=== PATIENT | male | born 1985 | race Caucasian/White ===

== ENCOUNTER 2016-12-02 16:09 | Emergency (ER) | payer SELFPAY ==
[~2016-12-02] VITALS: Ht 182.9 cm; Wt 87.2 kg
[~2016-12-02 16:09] MED LIST: ALBU17I INH; ALBU6.7H INH; ALPR1 PO; DICY10 PO; IBUP600T26 PO; ULTR50TA PO
[2016-12-02 16:23] VITALS: BP 136/98; PULSE 84; RESP 24; TEMP 97.7; O2SAT 100
[2016-12-02 16:55] VITALS: RESP 16; O2SAT 99
[2016-12-02] MEDS: RESP: ALBUTEROL 2.5 MG/IPRATROPIUM 0.5 MG NEB (SCH) INH ×2 (16:55→16:57)
[2016-12-02] MEDS ORDERED: ALBUTEROL SULFATE 90 MCG/ACT HFA 8 GM INHALER INH ONE (17:00)
[2016-12-02] MEDS ORDERED: SODIUM CHLOR 0.9% 1000 ML INJ 1,000 ML IV ONE ×2 (17:00)
[2016-12-02] MEDS ORDERED: DEXAMETHASONE SOD PHOS 4 MG/ML VIAL IM ONE (17:00)
[2016-12-02] MEDS ORDERED: SODIUM CHLORIDE 0.9% FLUSH 10 ML FLUSH IVF PRN (17:00)
[2016-12-02 17:15] LABS: AUTOMATED NEUTROPHIL # 6.3 TH/MM3 (1.8-7.7); BASOPHIL # 0.1 TH/MM3 (0-0.2); BASOPHIL % 0.6 % (0.0-2.0); EOSINOPHIL # 0.6 TH/MM3 (0-0.4); EOSINOPHIL % 5.9 % (0.0-4.0); HEMATOCRIT 42.6 % (39.0-51.0); HEMO FLAGS DIFF FINAL; LYMPH % 26.2 % (9.0-44.0); LYMPHOCYTE # 2.7 TH/MM3 (1.0-4.8); MEAN CELL VOLUME 90.6 FL (80.0-100.0); MEAN CORPUSCULAR HEMOGLOBIN 31.6 PG (27.0-34.0); MEAN CORPUSCULAR HGB CONC 34.9 % (32.0-36.0); NEUT % 60.3 % (16.0-70.0); PLATELET COUNT 193 TH/MM3 (150-450); RED CELL DISTRIBUTION WIDTH 11.8 % (11.6-17.2); WHITE BLOOD COUNT 10.4 TH/MM3 (4.0-11.0)
[2016-12-02 17:23] LABS: CHLORIDE 108 MEQ/L (98-107); POTASSIUM 3.6 MEQ/L (3.5-5.1); SODIUM (NA) 141 MEQ/L (136-145)
[2016-12-02 17:27] LABS: ANION GAP 11 MEQ/L (5-15); BICARBONATE 21.6 MEQ/L (21.0-32.0); BLOOD UREA NITROGEN 11 MG/DL (7-18)
[2016-12-02 17:29] LABS: ALT (GPT) 26 U/L (12-78); AST (GOT) 20 U/L (15-37)
[2016-12-02 17:30] LABS: GLOMERULAR FILTRATION RATE 105 ML/MIN (>89)
[2016-12-02 17:31] LABS: TOTAL BILIRUBIN ADULT 0.5 MG/DL (0.2-1.0)
[2016-12-02 17:32] LABS: ALKALINE PHOSPHATASE 49 U/L (45-117)
--- NOTE | 2016-12-02 17:44 | PD ---
HPI Chief Complaint: Respiratory Symptoms Time Seen by Provider: 16:34 Travel History International Travel<30 days: No Contact w/Intl Traveler<30days: No Traveled to known affect area: No History of Present Illness HPI 31-year-old male history of asthma arrives with shortness of breath and wheezing. He cannot take a full breath. He has tightness about the chest consistent with asthma. He ran out of his albuterol inhaler and nebulizer supplies about 2 weeks prior. He has had no cough or fever. He also notes vomiting the the last few mornings. 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 He smokes tobacco. He denies loss of consciousness chest pain and shortness of breath. PFSH Past Medical History Asthma: Yes Anxiety: Yes Diminished Hearing: No Gastrointestinal Disorders: Yes (ULCERATIVE COLITIS) Kidney Stones: Yes Respiratory: Yes (ASTHMA) Seizures: Yes Tetanus Vaccination: > 5 Years Influenza Vaccination: No Past Surgical History Genitourinary Surgery: Yes (LITHOTRIPSY ) Other Surgery: Yes (COLONOSCOPY, RIGHT ORBITAL FRACTURE) Social History Alcohol Use: Yes (hx of ETOH abuse states at present time only 1 drink a day or less) Tobacco Use: Yes (1/2 PPD) Substance Use: Yes (MARIJUANA) Allergies-Medications (Allergen,Severity, Reaction): Coded Allergies: Bee Sting (Verified Allergy, Severe, Anaphylaxis, 12/02/16) Reported Meds & Prescriptions Reported Meds & Active Scripts Active Zofran Odt (Ondansetron Odt) 4 Mg Tab 4 Mg SL Q8HR PRN Ventolin Hfa 18 GM Inh (Albuterol Sulfate) 90 Mcg/Act Aer 2 Puff INH Q4H PRN Review of Systems Except as stated in HPI: all other systems reviewed are Neg General / Constitutional: No: Fever Respiratory: Positive: Shortness of Breath, Wheezing Physical Exam Narrative GENERAL: 31 yo M, WNWD, mild conversational dyspnea SKIN: Warm and dry. HEAD: Atraumatic. Normocephalic. EYES: Pupils equal and round. No scleral icterus. No injection or drainage. ENT: No nasal bleeding or discharge. Mucous membranes pink and moist. NECK: Trachea midline. No JVD. CARDIOVASCULAR: Regular. Tachycardia. RESPIRATORY: Wheezing present bilaterally. Mild tachypnea. GASTROINTESTINAL: Abdomen soft, non-tender, nondistended. Hepatic and splenic margins not palpable. MUSCULOSKELETAL: Extremities without clubbing, cyanosis, or edema. No obvious deformities. NEUROLOGICAL: Awake and alert. No obvious cranial nerve deficits. Motor grossly within normal limits. Five out of 5 muscle strength in the arms and legs. Normal speech. PSYCHIATRIC: Appropriate mood and affect; insight and judgment normal. Data Data Last Documented VS Vital Signs Date Time Temp Pulse Resp B/P Pulse Ox O2 Delivery O2 Flow Rate FiO2 12/02/16 17:51 80 16 141/82 98 Room Air 12/02/16 16:23 97.7 VS reviewed Orders Complete Blood Count With Diff (12/02/16 16:46) Comprehensive Metabolic Panel (12/02/16 16:46) Iv Access Insert/Monitor (12/02/16 16:46) Ecg Monitoring (12/02/16 16:46) Oximetry (12/02/16 16:46) Oxygen Administration (12/02/16 16:46) Sodium Chloride 0.9% Flush (Ns Flush) (12/02/16 17:00) Albuterol-Ipratropium Neb (Duoneb Neb) (12/02/16 17:00) Dexamethasone Inj (Decadron Inj) (12/02/16 17:00) Lipase (12/02/16 16:46) Sodium Chlor 0.9% 1000 Ml Inj (Ns 1000 M (12/02/16 17:00) Sodium Chlor 0.9% 1000 Ml Inj (Ns 1000 M (12/02/16 17:00) Albuterol Hfa Inh (Proair Hfa Inh) (12/02/16 17:00) Labs Laboratory Tests Test 12/02/16 17:05 White Blood Count 10.4 TH/MM3 Red Blood Count 4.70 MIL/MM3 Hemoglobin 14.9 GM/DL Hematocrit 42.6 % Mean Corpuscular Volume 90.6 FL Mean Corpuscular Hemoglobin 31.6 PG Mean Corpuscular Hemoglobin 34.9 % Concent Red Cell Distribution Width 11.8 % Platelet Count 193 TH/MM3 Mean Platelet Volume 9.7 FL Neutrophils (%) (Auto) 60.3 % Lymphocytes (%) (Auto) 26.2 % Monocytes (%) (Auto) 7.0 % Eosinophils (%) (Auto) 5.9 % Basophils (%) (Auto) 0.6 % Neutrophils # (Auto) 6.3 TH/MM3 Lymphocytes # (Auto) 2.7 TH/MM3 Monocytes # (Auto) 0.7 TH/MM3 Eosinophils # (Auto) 0.6 TH/MM3 Basophils # (Auto) 0.1 TH/MM3 CBC Comment DIFF FINAL Differential Comment Sodium Level 141 MEQ/L Potassium Level 3.6 MEQ/L Chloride Level 108 MEQ/L Carbon Dioxide Level 21.6 MEQ/L Anion Gap 11 MEQ/L Blood Urea Nitrogen 11 MG/DL Creatinine 0.85 MG/DL Estimat Glomerular Filtration 105 ML/MIN Rate Random Glucose 85 MG/DL Calcium Level 9.3 MG/DL Total Bilirubin 0.5 MG/DL Aspartate Amino Transf 20 U/L (AST/SGOT) Alanine Aminotransferase 26 U/L (ALT/SGPT) Alkaline Phosphatase 49 U/L Total Protein 7.1 GM/DL Albumin 3.7 GM/DL Lipase 135 U/L [facility] Medical Decision Making Medical Screen Exam Complete: Yes Emergency Medical Condition: Yes Differential Diagnosis Asthma exacerbation, PNA, pancreatitis, gastritis, hepatitis Narrative Course CBC & BMP Diagram 12/02/16 17:05 LFTs normal Lipase 135 The patient is resting comfortably and feels better, is alert and in no distress. The patients results and examination findings were discussed. The repeat examination is unremarkable and benign. The history, exam, diagnostic testing, and current condition do not suggest any significant pathology to warrant further testing, continued ED treatment, admission, or surgical evaluation at this point. The vital signs have been stable. The patient does not have uncontrollable pain, intractable vomiting, or other significant symptoms. The patient's condition is stable and appropriate for discharge. The patient will pursue further outpatient evaluation with a primary care physician or other designated or consulting physician as indicated in the discharge instructions. The patient expressed understanding and was agreeable with this plan. Diagnosis Primary Impression: Asthma attack Additional Impression: Vomiting Qualified Code: R11.11 - Non-intractable vomiting without nausea, unspecified vomiting type Referrals: Felipe Drummond MD 2 days Additional Instructions: You have a choice when it comes to health care, and we are glad that you chose [facility]. Hopefully, we have met your expectations on today's visit. You are welcome to return to [facility] at any time, as we are committed to meeting the health care needs of our community. Med/Other Pt SpecificInfo: Prescription(s) given Scripts Ondansetron Odt (Zofran Odt)4 Mg Tab4 Mg SL Q8HR PRN (Nausea/Vomiting) #10 TAB Ref 0 Prov:Vinay Avery MD 12/02/16 Albuterol 18 GM Inh (Ventolin Hfa 18 GM Inh)90 Mcg/Act Aer2 Puff INH Q4H PRN ( WHEEZING) #1 INHALER Ref 0 Prov:Vinay Avery MD 12/02/16 Disposition: 01 DISCHARGE HOME Condition: Stable Vinay Avery MD December 02, 2016 17:44 Vinay Avery MD December 02, 2016 17:44 Vinay Avery MD December 02, 2016 17:44
[2016-12-02 17:51] VITALS: BP 141/82; PULSE 80; RESP 16; O2SAT 98
[2016-12-02] MEDS ORDERED: VENTAER INH (17:54)
[2016-12-02] MEDS ORDERED: ZOFR4TAB3 SL (17:55)
== END 2016-12-02 18:12 | disposition home or self-care (01) ==
LOC: PHEFT 16:09
DX: J45.909 Unspecified asthma, uncomplicated (principal); R11.10 Vomiting, unspecified; F17.200 Nicotine dependence, unspecified, uncomplicated; F41.9 Anxiety disorder, unspecified
CPT/HCPCS: 80053; 83690; 85025; 94640; 94664; 96360; 96372; 99284; J1100; J7030

== ENCOUNTER 2017-06-02 17:16 | Emergency (ER) | payer SELFPAY ==
[~2017-06-02] VITALS: Ht 182.9 cm; Wt 92.4 kg
[~2017-06-02 17:16] MED LIST changes: -ALBU17I INH; -ALBU6.7H INH; -ALPR1 PO; -DICY10 PO; -IBUP600T26 PO; -ULTR50TA PO; +VENTAER INH; +ZOFR4TAB3 SL
[2017-06-02 17:20] VITALS: BP 134/70; PULSE 92; RESP 20; TEMP 98.2; O2SAT 100
[2017-06-02] MEDS ORDERED: methylPREDNISolone SOD SUCC 125 MG/2 ML VIAL IV PUSH ONE (17:30)
[2017-06-02] MEDS ORDERED: MAGNESIUM SULFATE 1 GM PREMIX 100 ML IV ONE (17:30)
[2017-06-02] MEDS ORDERED: SODIUM CHLORIDE 0.9% FLUSH 10 ML FLUSH IVF PRN (17:30)
[2017-06-02] MEDS ORDERED: SODIUM CHLOR 0.9% 1000 ML INJ 1,000 ML IV ONE (17:30)
--- NOTE | 2017-06-02 17:32 | PD ---
HPI Chief Complaint: Respiratory Symptoms Time Seen by Provider: 17:23 Travel History International Travel<30 days: No Contact w/Intl Traveler<30days: No Traveled to known affect area: No History of Present Illness HPI C/O 1 WEEK PROGRESSIVELY WORSENING DRY COUGH, WHEEZING, SOB AND NOW PALPITATIONS ALSO...C/O SHARP CP, LEFT SIDED, NONRAD, 01/11, WORSENED BY BREATHING...NO ALLEVIATING OR AGGRAVATING FACTORS....NO ASSOC FEVER/SHARPE/BACK PAIN /ABD PAIN/N/V/D/ PCP:NONE ALL:[facility] PMHX: ASTHMA, ULCERATIVE COLITIS, KIDNEY STONES PSHX DENIES PFSH Past Medical History Asthma: Yes Anxiety: Yes Diminished Hearing: No Gastrointestinal Disorders: Yes (ULCERATIVE COLITIS) Kidney Stones: Yes Respiratory: Yes Seizures: Yes Past Surgical History Genitourinary Surgery: Yes (LITHOTRIPSY ) Other Surgery: Yes (COLONOSCOPY, RIGHT ORBITAL FRACTURE) Social History Alcohol Use: Yes (hx of ETOH abuse states at present time only 1 drink a day or less) Tobacco Use: Yes (1/2 PPD) Substance Use: Yes (MARIJUANA) Allergies-Medications (Allergen,Severity, Reaction): Coded Allergies: bee venom protein (honey bee) (Unverified Allergy, Severe, Anaphylaxis, ) Reported Meds & Prescriptions Reported Meds & Active Scripts Active Ventolin Hfa 18 GM Inh (Albuterol Sulfate) 90 Mcg/Act Aer 2 Puff INH Q4H PRN Review of Systems Except as stated in HPI: all other systems reviewed are Neg General / Constitutional: No: Fever Eyes: No: Visual changes HENT: No: Headaches Cardiovascular: Positive: Chest Pain or Discomfort Respiratory: Positive: Cough, Shortness of Breath, Wheezing Gastrointestinal: No: Abdominal Pain Genitourinary: No: Dysuria Musculoskeletal: No: Pain Skin: No Rash Neurologic: No: Weakness Psychiatric: No: Depression Endocrine: No: Polydipsia Hematologic/Lymphatic: No: Easy Bruising Physical Exam Narrative GENERAL: SKIN: Warm and dry. HEAD: Atraumatic. Normocephalic. EYES: Pupils equal and round. No scleral icterus. No injection or drainage. ENT: No nasal bleeding or discharge. Mucous membranes pink and moist. NECK: Trachea midline. No JVD. CARDIOVASCULAR: Regular rate and rhythm. RESPIRATORY: No accessory muscle use. WHEEZING, DECREASED TIDAL VOLUME, NO RETRACTIONS GASTROINTESTINAL: Abdomen soft, non-tEnder, nondistended. MUSCULOSKELETAL: Extremities without clubbing, cyanosis, or edema. No obvious deformities. NEUROLOGICAL: Awake and alert. No obvious cranial nerve deficits. Motor grossly within normal limits. Five out of 5 muscle strength in the arms and legs. Normal speech. PSYCHIATRIC: Appropriate mood and affect; insight and judgment normal. Data Data Last Documented VS Vital Signs Date Time Temp Pulse Resp B/P (MAP) Pulse Ox O2 Delivery O2 Flow Rate FiO2 06/02/17 17:44 100 Room Air 06/02/17 17:25 92 06/02/17 17:20 98.2 20 134/70 (91) Orders Orders Complete Blood Count With Diff (06/02/17 17:24) Comprehensive Metabolic Panel (06/02/17:) B-Type Natriuretic Peptide (06/02/17 17:24) Act Partial Throm Time (Ptt) (06/02/17:24) Prothrombin Time / Inr (Pt) (06/02/17:24) Troponin I (06/02/17:24) Influenzae A/B Antigen (06/02/17 17:24) Iv Access Insert/Monitor (06/02/17 17:24) Electrocardiogram (06/02/17:24) Ecg Monitoring (06/02/17:24) Oximetry (06/02/17:24) Oxygen Administration (06/02/17 17:24) Chest, Single Ap (06/02/17 17:24) Ct Pulmonary Angiogram (06/02/17 17:24) Sodium Chloride 0.9% Flush (Ns Flush) (06/02/17 17:30) Methylprednisolone So Succ Inj (Solumedr (06/02/17 17:30) Albuterol Neb (Albuterol Neb) (06/02/17 17:30) Magnesium Sulfate 1 Gm Premix (Magnesium (06/02/17 17:30) Sodium Chlor 0.9% 1000 Ml Inj (Ns 1000 M (06/02/17 17:30) Labs Laboratory Tests Test 06/02/17 17:30 White Blood Count 9.2 TH/MM3 Red Blood Count 5.21 MIL/MM3 Hemoglobin 15.6 GM/DL Hematocrit 47.0 % Mean Corpuscular Volume 90.2 FL Mean Corpuscular Hemoglobin 29.9 PG Mean Corpuscular Hemoglobin Concent 33.2 % Red Cell Distribution Width 11.6 % Platelet Count 208 TH/MM3 Mean Platelet Volume 9.9 FL Neutrophils (%) (Auto) 53.8 % Lymphocytes (%) (Auto) 30.9 % Monocytes (%) (Auto) 8.1 % Eosinophils (%) (Auto) 6.6 % Basophils (%) (Auto) 0.6 % Neutrophils # (Auto) 5.0 TH/MM3 Lymphocytes # (Auto) 2.8 TH/MM3 Monocytes # (Auto) 0.7 TH/MM3 Eosinophils # (Auto) 0.6 TH/MM3 Basophils # (Auto) 0.1 TH/MM3 CBC Comment DIFF FINAL Differential Comment Prothrombin Time 10.5 SEC Prothromb Time International Ratio 1.0 RATIO Activated Partial Thromboplast Time 28.2 SEC Blood Urea Nitrogen 17 MG/DL Creatinine 1.10 MG/DL Random Glucose 90 MG/DL Total Protein 7.3 GM/DL Albumin 3.9 GM/DL Calcium Level 8.6 MG/DL Alkaline Phosphatase 59 U/L Aspartate Amino Transf (AST/SGOT) 17 U/L Alanine Aminotransferase (ALT/SGPT) 27 U/L Total Bilirubin 0.5 MG/DL Sodium Level 136 MEQ/L Potassium Level 3.6 MEQ/L Chloride Level 102 MEQ/L Carbon Dioxide Level 21.3 MEQ/L Anion Gap 13 MEQ/L Estimat Glomerular Filtration Rate 78 ML/MIN Troponin I LESS THAN 0.02 NG/ML B-Type Natriuretic Peptide 7 PG/ML MDM Medical Decision Making Medical Screen Exam Complete: Yes Emergency Medical Condition: Yes Medical Record Reviewed: Yes Interpretation(s) EKG: SINUS TACHYCARDIA, 115, NL INTERVALS, NO STEMI PATTERN PULSE OX: NORMAL PULSE OX 95% ON RA, EXCELLENT PLETH WAVE Differential Diagnosis FLU V PNA V VIRAL SYNDROME V ASTHMA EXACERBATION Narrative Course SINUS TACH RESOLVED AFTER NEBS/STEROIDS/MAGNESIUM/FLUIDS, NEG FLU TEST, CHXR NEG FOR PNA/PLEURAL EFFUSION. PULSE OX CONTINUED NORMAL ON RA. CT CHEST NEG FOR PERICARDIAL EFFUSION AND NEG FOR PE Diagnosis Primary Impression: Asthma with acute exacerbation in adult Qualified Codes: J45.21 - Mild intermittent asthma with (acute) exacerbation Patient Instructions: Asthma (ED), General Instructions Scripts Azithromycin (Zithromax Z-Juanpablo) 250 Mg Dspk 250 MG PO DIRECTED for Infection, #1 DSPK 0 Refills 500 MG (2 tabs) day 1, then 1 tab days 2-5. Prov: Fred Maravilla MD 06/02/17 Methylprednisolone Dosepak (Medrol Dosepak) 4 Mg Dspk 4 MG PO DIRECTED, #1 DSPK 0 Refills Per Pharmacist direction Prov: Fred Maravilla MD 06/02/17 Albuterol 18 GM Inh (Ventolin Hfa 18 GM Inh) 90 Mcg/Act Aer 2 PUFF INH Q4H Y for SHORTNESS OF BREATH, #1 INHALER 0 Refills Prov: Fred Maravilla MD 06/02/17 Disposition: DISCHARGE HOME Condition: Stable Fred Maravilla MD Jun 02, 2017 17:32
[2017-06-02 17:42] LABS: BASOPHIL # 0.1 TH/MM3 (0-0.2); BASOPHIL % 0.6 % (0.0-2.0); EOSINOPHIL # 0.6 TH/MM3 (0-0.4); EOSINOPHIL % 6.6 % (0.0-4.0); HEMO FLAGS DIFF FINAL; LYMPH % 30.9 % (9.0-44.0); LYMPHOCYTE # 2.8 TH/MM3 (1.0-4.8); MEAN CELL VOLUME 90.2 FL (80.0-100.0); MEAN CORPUSCULAR HEMOGLOBIN 29.9 PG (27.0-34.0); MEAN CORPUSCULAR HGB CONC 33.2 % (32.0-36.0); MONO % 8.1 % (0.0-8.0); NEUT % 53.8 % (16.0-70.0); PLATELET COUNT 208 TH/MM3 (150-450); RED BLOOD COUNT 5.21 MIL/MM3 (4.50-5.90); RED CELL DISTRIBUTION WIDTH 11.6 % (11.6-17.2); WHITE BLOOD COUNT 9.2 TH/MM3 (4.0-11.0)
[2017-06-02] MEDS: RESP: ALBUTEROL 2.5 MG/3 ML NEB (SCH) INH (17:43)
[2017-06-02 17:44] VITALS: O2SAT 100
--- NOTE | 2017-06-02 17:49 | RADRPT ---
EXAM DATE/TIME: 06/02/2017 17:31 [facility] COMPARISON: No previous studies available for comparison. INDICATIONS : Short of breath. MEDICAL HISTORY : Seizures. Colitis SURGICAL HISTORY : None. ENCOUNTER: Initial ACUITY: 1 week PAIN SCORE: 0/10 LOCATION: Bilateral chest FINDINGS: A single view of the chest demonstrates the lungs to be symmetrically aerated without evidence of mas s, infiltrate or effusion. The cardiomediastinal contours are unremarkable. Osseous structures are intact. CONCLUSION: No acute disease. Timi Owens MD on June 02, 2017 at 17:47 Board Certified Radiologist. This report was verified electronically.
[2017-06-02 17:55] LABS: CHLORIDE 102 MEQ/L (98-107); POTASSIUM 3.6 MEQ/L (3.5-5.1); SODIUM (NA) 136 MEQ/L (136-145)
[2017-06-02 17:59] LABS: ANION GAP 13 MEQ/L (5-15); BICARBONATE 21.3 MEQ/L (21.0-32.0); BLOOD UREA NITROGEN 17 MG/DL (7-18)
[2017-06-02 18:01] LABS: APTT (PATIENT) 28.2 SEC (24.3-30.1); PROTHROMBIN TIME - PATIENT 10.5 SEC (9.8-11.6)
[2017-06-02 18:02] LABS: ALT (GPT) 27 U/L (12-78); AST (GOT) 17 U/L (15-37); GLOMERULAR FILTRATION RATE 78 ML/MIN (>89)
[2017-06-02 18:04] LABS: TOTAL BILIRUBIN ADULT 0.5 MG/DL (0.2-1.0)
[2017-06-02 18:05] LABS: ALKALINE PHOSPHATASE 59 U/L (45-117)
[2017-06-02] MEDS ORDERED: MEDR4PAK PO (18:21)
[2017-06-02] MEDS ORDERED: ZITHTAB PO (18:21)
[2017-06-02] MEDS ORDERED: VENTAER INH (18:21)
[2017-06-02 18:35] VITALS: BP 138/76; PULSE 87; RESP 18; O2SAT 97
[2017-06-02] MEDS ORDERED: IOHEXOL 350 MG/ML 10 ML VIAL (for RAD DIAG) IVCONTRAST ONE (18:35)
--- NOTE | 2017-06-02 18:51 | RADRPT ---
EXAM DATE/TIME: 06/02/2017 18:21 [facility] COMPARISON: No previous studies available for comparison. INDICATIONS : Shortness of breath, chest pain. IV CONTRAST: 70 cc Omnipaque 350 (iohexol) IV RADIATION DOSE: 15.99 CTDIvol (mGy) MEDICAL HISTORY : Asthma. SURGICAL HISTORY : None. ENCOUNTER: Initial ACUITY: 2 weeks PAIN SCALE: 4/10 LOCATION: Left chest TECHNIQUE: Volumetric scanning of the chest was performed using a pulmonary embolism protocol MIP images were re constructed. Using automated exposure control and adjustment of the mA and/or kV according to patien t size, radiation dose was kept as low as reasonably achievable to obtain optimal diagnostic quality images. DICOM format image data is available electronically for review and comparison. Follow-up recommendations for detected pulmonary nodules are based at a minimum on nodule size and pa tient risk factors according to Fleischner Society Guidelines. FINDINGS: PULMONARY ARTERIES: No filling defects are seen in the pulmonary arteries through the first segmental level. Contrast maddy us is somewhat late in the more peripheral branches are poorly opacified. LUNGS: There is no consolidation or pneumothorax . No concerning pulmonary nodule is visualized. Minimal de pendent atelectatic changes bilaterally. PLEURAE: There is no pleural thickening or pleural effusion. MEDIASTINUM: There is good visualization of the great vessels of the middle mediastinum. No evidence of mediastin al or hilar adenopathy/mass. MUSCULOSKELETAL: Within normal limits for patient age. MISCELLANEOUS: The visualized upper abdominal organs demonstrate no acute abnormality. CONCLUSION: No acute infiltrate or large central pulmonary embolus to explain current clinical symptoms Osorio Fountain MD on June 02, 2017 at 18:47 Board Certified Radiologist. This report was verified electronically.
[2017-06-02 19:09] VITALS: BP 122/73
--- NOTE | 2017-06-03 16:06 | EKG ---
Date Performed: 06/02/2017 Time Performed: 17:20:44 PTAGE: 32 years EKG: SINUS TACHYCARDIA NONSPECIFIC T-WAVE ABNORMALITY ABNORMAL RHYTHM ECG Since PREVIOUS TRACING , no significant change noted PREVIOUS TRACIN09/23/2009 23.53 DOCTOR: Kaylah Desouza Interpretating Date/Time 06/03/2017 16:05:46
== END 2017-06-02 19:15 | disposition home or self-care (01) ==
LOC: PHED 17:16
DX: J45.21 Mild intermittent asthma with (acute) exacerbation (principal); F17.200 Nicotine dependence, unspecified, uncomplicated
CPT/HCPCS: 71010; 71275; 80053; 83880; 84484; 85025; 85610; 85730; 87804; 93005; 94640; 94664; 96361; 96374; 99285; J2930; J3475; J7030; J7613; Q9967

== ENCOUNTER 2017-08-02 23:35 | Observation (INO) | payer SELFPAY ==
[~2017-08-02] VITALS: Ht 182.9 cm; Wt 85.4 kg
[~2017-08-02 23:35] MED LIST changes: +MEDR4PAK PO; +ZITHTAB PO; -ZOFR4TAB3 SL
[2017-08-02 23:38] VITALS: BP 121/86; PULSE 88; RESP 20; TEMP 98.3; O2SAT 97
[2017-08-02 23:59] VITALS: BP 149/89; PULSE 89; RESP 20; TEMP 98.3; O2SAT 97
[2017-08-03] VITALS (11 sets, daily range): BP systolic 99–149; BP diastolic 58–92; PULSE 53–71; RESP 14–20; TEMP 96.2–97.9; O2SAT 95–99
[2017-08-03 00:01] LABS: AUTOMATED NEUTROPHIL # 9.2 TH/MM3 (1.8-7.7); BASOPHIL % 0.2 % (0.0-2.0); EOSINOPHIL # 0.6 TH/MM3 (0-0.4); EOSINOPHIL % 4.4 % (0.0-4.0); LYMPH % 18.2 % (9.0-44.0); LYMPHOCYTE # 2.4 TH/MM3 (1.0-4.8); MEAN CELL VOLUME 90.7 FL (80.0-100.0); MEAN CORPUSCULAR HEMOGLOBIN 30.9 PG (27.0-34.0); MEAN CORPUSCULAR HGB CONC 34.1 % (32.0-36.0); MEAN PLATELET VOLUME 9.7 FL (7.0-11.0); MONO % 7.8 % (0.0-8.0); NEUT % 69.4 % (16.0-70.0); PLATELET COUNT 220 TH/MM3 (150-450); RED BLOOD COUNT 5.18 MIL/MM3 (4.50-5.90); RED CELL DISTRIBUTION WIDTH 12.3 % (11.6-17.2); WHITE BLOOD COUNT 13.2 TH/MM3 (4.0-11.0)
[2017-08-03 00:08] LABS: CHLORIDE 102 MEQ/L (98-107); SODIUM (NA) 137 MEQ/L (136-145)
[2017-08-03 00:12] LABS: ALBUMIN 4.2 GM/DL (3.4-5.0); BICARBONATE 27.9 MEQ/L (21.0-32.0); BLOOD UREA NITROGEN 13 MG/DL (7-18); CALCIUM 9.2 MG/DL (8.5-10.1); GLUCOSE,RANDOM 123 MG/DL (74-106)
[2017-08-03 00:15] LABS: ALT (GPT) 26 U/L (12-78); AST (GOT) 19 U/L (15-37); GLOMERULAR FILTRATION RATE 98 ML/MIN (>89)
[2017-08-03 00:16] LABS: TOTAL BILIRUBIN ADULT 0.6 MG/DL (0.2-1.0)
[2017-08-03 00:17] LABS: TOTAL PROTEIN 7.6 GM/DL (6.4-8.2)
[2017-08-03 00:18] LABS: ALKALINE PHOSPHATASE 66 U/L (45-117)
--- NOTE | 2017-08-03 00:23 | PD ---
HPI Chief Complaint: Abdominal Pain Time Seen by Provider: 00:05 Travel History International Travel<30 days: No Contact w/Intl Traveler<30days: No Traveled to known affect area: No History of Present Illness HPI The patient is a 32-year-old male with a history of ulcerative colitis and fairly frequent visitor to the emergency department who states he started vomiting this morning. He went to work and continued to vomit and he states his friends convinced him to go to the emergency department. He states he is vomiting up a small amount of blood. He states his abdominal pain is generalized. He does have a history of marijuana abuse and his toxicology screens of voice been positive. His last drink of alcohol was Wednesday evening. PFSH Past Medical History Asthma: Yes Anxiety: Yes Patient Takes Glucophage: No Diminished Hearing: No Gastrointestinal Disorders: Yes (ULCERATIVE COLITIS) Kidney Stones: Yes Respiratory: Yes (asthma) Seizures: Yes Influenza Vaccination: No Past Surgical History Genitourinary Surgery: Yes (LITHOTRIPSY ) Other Surgery: Yes (COLONOSCOPY, RIGHT ORBITAL FRACTURE) Social History Alcohol Use: Yes (2 DAILY) Tobacco Use: Yes (1/2 PPD) Substance Use: Yes (MARIJUANA) Allergies-Medications (Allergen,Severity, Reaction): Coded Allergies: bee venom protein (honey bee) (Unverified Allergy, Severe, Anaphylaxis, ) Reported Meds & Prescriptions Reported Meds & Active Scripts Active Ventolin Hfa 18 GM Inh (Albuterol Sulfate) 90 Mcg/Act Aer 2 Puff INH Q4H PRN Ventolin Hfa 18 GM Inh (Albuterol Sulfate) 90 Mcg/Act Aer 2 Puff INH Q4H PRN Review of Systems Except as stated in HPI: all other systems reviewed are Neg Physical Exam Narrative GENERAL: The patient does appear moderately dehydrated, alert, oriented 3 in severe distress with his generalized abdominal discomfort. His vital signs are normal. SKIN: Focused skin assessment warm/dry. HEAD: Atraumatic. Normocephalic. EYES: Pupils equal and round. No scleral icterus. No injection or drainage. ENT: No nasal bleeding or discharge. Mucous membranes pink and moist. NECK: Trachea midline. No JVD. CARDIOVASCULAR: Regular rate and rhythm. No murmur appreciated. RESPIRATORY: No accessory muscle use. Clear to auscultation. Breath sounds equal bilaterally. GASTROINTESTINAL: Abdomen soft, with slight tenderness to direct palpation in all 4 quadrants, nondistended. Hepatic and splenic margins not palpable. No guarding or rebound is present. MUSCULOSKELETAL: No obvious deformities. No clubbing. No cyanosis. No edema. NEUROLOGICAL: Awake and alert. No obvious cranial nerve deficits. Motor grossly within normal limits. Normal speech. PSYCHIATRIC: The patient is extremely anxious; insight and judgment normal. Data Data Last Documented VS Vital Signs Date Time Temp Pulse Resp B/P (MAP) Pulse Ox O2 Delivery O2 Flow Rate FiO2 08/03/17 01:22 65 20 144/92 (109) 99 Room Air 08/02/17 23:59 98.3 Orders Orders Complete Blood Count With Diff (08/02/17 23:40) Comprehensive Metabolic Panel (08/02/17 23:40) Urinalysis - C+S If Indicated (08/02/17 23:40) Iv Access Insert/Monitor (08/02/17 23:40) Oximetry (08/02/17 23:40) Lipase (08/02/17 23:40) Drug Screen, Random Urine (08/03/17 00:16) Ct Abd/Pel W Iv Contrast(Rout) (08/03/17 00:16) Ecg Monitoring (08/03/17 00:16) Hydromorphone Pf Inj (Dilaudid Pf Inj) (08/03/17 00:30) Ondansetron Inj (Zofran Inj) (08/03/17 00:30) Sodium Chloride 0.9% Flush (Ns Flush) (08/03/17 00:30) Sodium Chlor 0.9% 1000 Ml Inj (Ns 1000 M (08/03/17 00:30) Iohexol 350 Inj (Omnipaque 350 Inj) (08/03/17 01:25) Hydromorphone Pf Inj (Dilaudid Pf Inj) (08/03/17 02:15) Ondansetron Inj (Zofran Inj) (08/03/17 02:15) Hydromorphone Pf Inj (Dilaudid Pf Inj) (08/03/17 02:15) Place In Observation (08/03/17 ) Vital Signs (Adult) Q4H (08/03/17 02:12) Activity Oob Ad Bernice (08/03/17 02:12) Intake + Output KAYLEN.QSHIFT (08/03/17 02:12) Diet Regular Basic (08/03/17 Breakfast) Sodium Chlor 0.9% 1000 Ml Inj (Ns 1000 M (08/03/17 02:12) Sodium Chloride 0.9% Flush (Ns Flush) (08/03/17 02:15) Sodium Chloride 0.9% Flush (Ns Flush) (08/03/17 09:00) Ondansetron Inj (Zofran Inj) (08/03/17 02:15) Comprehensive Metabolic Panel (08/04/17 06:00) Complete Blood Count With Diff (08/04/17 06:00) Scd Bilateral/Knee High KAYLEN.BID (08/03/17 02:12) Lamine Bilateral/Knee High KAYLEN.QSHIFT (08/03/17 02:14) Acetaminophen (Tylenol) (08/03/17 02:15) Acetamin-Hydrocod 325-5 Mg ([place] 5-325 (08/03/17 02:15) Docusate Sodium-Senna (Angeline-Colace) (08/03/17 09:00) Magnesium Hydroxide Liq (Milk Of Magnesi (08/03/17 02:15) Sennosides (Senokot) (08/03/17 02:15) Bisacodyl Supp (Dulcolax Supp) (08/03/17 02:15) Lactulose Liq (Lactulose Liq) (08/03/17 02:15) Admit Order (Ed Use Only) (08/03/17 02:13) Labs Laboratory Tests Test 08/02/17 23:50 08/03/17 00:42 White Blood Count 13.2 TH/MM3 Red Blood Count 5.18 MIL/MM3 Hemoglobin 16.0 GM/DL Hematocrit 47.0 % Mean Corpuscular Volume 90.7 FL Mean Corpuscular Hemoglobin 30.9 PG Mean Corpuscular Hemoglobin Concent 34.1 % Red Cell Distribution Width 12.3 % Platelet Count 220 TH/MM3 Mean Platelet Volume 9.7 FL Neutrophils (%) (Auto) 69.4 % Lymphocytes (%) (Auto) 18.2 % Monocytes (%) (Auto) 7.8 % Eosinophils (%) (Auto) 4.4 % Basophils (%) (Auto) 0.2 % Neutrophils # (Auto) 9.2 TH/MM3 Lymphocytes # (Auto) 2.4 TH/MM3 Monocytes # (Auto) 1.0 TH/MM3 Eosinophils # (Auto) 0.6 TH/MM3 Basophils # (Auto) 0.0 TH/MM3 CBC Comment DIFF FINAL Differential Comment Blood Urea Nitrogen 13 MG/DL Creatinine 0.90 MG/DL Random Glucose 123 MG/DL Total Protein 7.6 GM/DL Albumin 4.2 GM/DL Calcium Level 9.2 MG/DL Alkaline Phosphatase 66 U/L Aspartate Amino Transf (AST/SGOT) 19 U/L Alanine Aminotransferase (ALT/SGPT) 26 U/L Total Bilirubin 0.6 MG/DL Sodium Level 137 MEQ/L Potassium Level 3.5 MEQ/L Chloride Level 102 MEQ/L Carbon Dioxide Level 27.9 MEQ/L Anion Gap 7 MEQ/L Estimat Glomerular Filtration Rate 98 ML/MIN Lipase 431 U/L Urine Color YELLOW Urine Turbidity SLIGHT Urine pH 6.5 Urine Specific [place] 1.021 Urine Protein NEG mg/dL Urine Glucose (UA) NEG mg/dL Urine Ketones TRACE mg/dL Urine Occult Blood NEG Urine Nitrite NEG Urine Bilirubin NEG Urine Leukocyte Esterase NEG Urine WBC 0-2 /hpf Urine Squamous Epithelial Cells 0-5 /hpf Urine Amorphous Sediment FEW Urine Mucus FEW /lpf Microscopic Urinalysis Comment CULT NOT INDICATED Urine Opiates Screen NEG Urine Barbiturates Screen NEG Urine Amphetamines Screen NEG Urine Benzodiazepines Screen NEG Urine Cocaine Screen NEG Urine Cannabinoids Screen POS MDM Medical Decision Making Medical Screen Exam Complete: Yes Emergency Medical Condition: Yes Medical Record Reviewed: Yes Interpretation(s) The toxicology screen of the urine is positive cannabinoids and negative for everything else. The CBC shows a white count of 13,200 but is otherwise unremarkable. The urine shows slight turbidity, trace ketones and is otherwise unremarkable and culture is not indicated. The complete metabolic profile shows a glucose of 123 but is otherwise normal. The lipase is 431. The CT abdomen and pelvis shows no acute findings and no significant change from July 2015. Differential Diagnosis Bowel obstruction, pancreatitis, drug seeking behavior, exacerbation of Crohn's disease, abdominal pain etiology undetermined, dehydration, electrolyte disorder , renal insufficiency, hyper/hypoglycemia Narrative Course The patient appears to have mild pancreatitis and intractable abdominal pain. His CAT scan is normal. This could also be an exacerbation of ulcerative colitis. Diagnosis Primary Impression: Pancreatitis Additional Impressions: Intractable abdominal pain Ulcerative colitis Admitting Information Admitting Physician Requests: Observation Mihir Mccurdy MD Aug 03, 2017 00:23
[2017-08-03] MEDS ORDERED: ONDANSETRON HCL 4 MG/2 ML VIAL IVP ONE (00:30)
[2017-08-03] MEDS ORDERED: HYDROmorphone HCL PF 2 MG/ML VIAL IVS ONE (00:30)
[2017-08-03] MEDS ORDERED: SODIUM CHLORIDE 0.9% FLUSH 10 ML FLUSH IV FLUSH PRN ×2 (00:30→02:15)
[2017-08-03] MEDS: SODIUM CHLOR 0.9% 1000 ML INJ 1,000 ML IV SCH ×4 (00:43→13:52)
[2017-08-03 00:57] LABS: BLOOD, URINE NEG (NEG); GLUCOSE,URINE NEG (NEG); KETONE, URINE TRACE mg/dL (NEG); NITRITE,URINE NEG (NEG); PH, URINE 6.5 (5.0-8.5); URINE LEUKOCYTE ESTERASE NEG (NEG)
[2017-08-03 01:02] LABS: BILIRUBIN, URINE NEG (NEG); URINE COLOR YELLOW (YELLW/STRAW)
[2017-08-03 01:03] LABS: AMORPHOUS SEDIMENT, URINE FEW; MUCUS URINE FEW /lpf (OCC); SQUAMOUS EPITHELIAL CELL URINE 0-5 /hpf (0-5)
[2017-08-03 01:05] LABS: WBC, URINE 0-2 /hpf (0-5)
[2017-08-03] MEDS ORDERED: IOHEXOL 350 MG/ML 10 ML VIAL (for RAD DIAG) IVCONTRAST ONE (01:25)
--- NOTE | 2017-08-03 01:56 | RADRPT ---
EXAM DATE/TIME: 08/03/2017 01:10 [place] COMPARISON: No previous studies available for comparison. INDICATIONS : Lower abdominal pain. IV CONTRAST: 100 cc Omnipaque 350 (iohexol) IV ORAL CONTRAST: No oral contrast ingested. RADIATION DOSE: 8.53 CTDIvol (mGy) MEDICAL HISTORY : None SURGICAL HISTORY : None. ENCOUNTER: Initial ACUITY: 1 day PAIN SCALE: 10/10 LOCATION: Bilateral lower quadrant TECHNIQUE: Volumetric scanning of the abdomen and pelvis was performed. Using automated exposure control and ad justment of the mA and/or kV according to patient size, radiation dose was kept as low as reasonably achievable to obtain optimal diagnostic quality images. DICOM format image data is available electro nically for review and comparison. FINDINGS: Lung bases are clear. No acute findings in the liver, spleen, adrenals, kidneys or pancreas. No calci fied gallstones or biliary ductal dilatation. CONCLUSION: 1. No acute findings. No significant change from July 2015. Orlando Segundo MD on August 03, 2017 at 1:47 Board Certified Radiologist. This report was verified electronically.
[2017-08-03] MEDS ORDERED: HYDROmorphone HCL PF 1 MG/ML VIAL IV PUSH PRN (02:15)
[2017-08-03] MEDS ORDERED: BISACODYL 10 MG SUPP RECTAL PRN (02:15)
[2017-08-03] MEDS ORDERED: ATROPINE/SCOPOLAM/HYOSCYAM/PB ELIXIR 10 ML CUP PO PRN (02:15)
[2017-08-03] MEDS ORDERED: HYDROmorphone HCL PF 1 MG/ML VIAL IVP ONE (02:15)
[2017-08-03] MEDS ORDERED: ALUMINUM/MAGNESIUM/SIMETH 30 ML CUP PO PRN (02:15)
[2017-08-03] MEDS ORDERED: LIDOCAINE VISCOUS 2% SOLN 15 ML UDC SWISH-SWAL PRN (02:15)
[2017-08-03] MEDS ORDERED: ACETAMINOPHEN 325 MG TAB PO PRN (02:15)
[2017-08-03] MEDS ORDERED: MAGNESIUM HYDROXIDE SUSP 30 ML CUP PO PRN (02:15)
[2017-08-03] MEDS ORDERED: ONDANSETRON HCL 4 MG/2 ML VIAL IV ONE (02:15)
[2017-08-03] MEDS ORDERED: SENNOSIDES 8.6 MG TAB PO PRN (02:15)
[2017-08-03] MEDS ORDERED: LACTULOSE SYRUP 20 GM/30 ML CUP PO PRN (02:15)
[2017-08-03] MEDS: HYDROmorphone HCL PF 2 MG/ML VIAL IV PRN ×7 (02:31→23:05)
[2017-08-03] MEDS: ACETAMINOPHEN/HYDROcodone 325 MG/5 MG TAB PO PRN (04:40)
[2017-08-03] MEDS: SODIUM CHLORIDE 0.9% FLUSH 10 ML FLUSH IV FLUSH SCH ×2 (09:00→20:55)
[2017-08-03] MEDS: ONDANSETRON HCL 4 MG/2 ML VIAL IVP PRN ×3 (09:23→23:04)
[2017-08-03] MEDS: DOCUSATE SODIUM 50 MG/SENNA 8.6 MG TAB PO SCH ×2 (09:23→20:55)
[2017-08-03 09:27] LABS: AUTOMATED NEUTROPHIL # 9.8 TH/MM3 (1.8-7.7); BASOPHIL % 0.2 % (0.0-2.0); EOSINOPHIL % 0.2 % (0.0-4.0); HEMATOCRIT 42.1 % (39.0-51.0); HEMOGLOBIN 14.2 GM/DL (13.0-17.0); LYMPH % 11.8 % (9.0-44.0); LYMPHOCYTE # 1.4 TH/MM3 (1.0-4.8); MEAN CELL VOLUME 90.8 FL (80.0-100.0); MEAN CORPUSCULAR HEMOGLOBIN 30.7 PG (27.0-34.0); MEAN CORPUSCULAR HGB CONC 33.8 % (32.0-36.0); MEAN PLATELET VOLUME 10.5 FL (7.0-11.0); MONO % 5.5 % (0.0-8.0); MONOCYTE # 0.6 TH/MM3 (0-0.9); NEUT % 82.3 % (16.0-70.0); PLATELET COUNT 201 TH/MM3 (150-450); RED BLOOD COUNT 4.63 MIL/MM3 (4.50-5.90); RED CELL DISTRIBUTION WIDTH 12.3 % (11.6-17.2); WHITE BLOOD COUNT 11.8 TH/MM3 (4.0-11.0)
--- NOTE | 2017-08-03 14:35 | HHI.HP ---
[facility] Service [facility] Primary Care Physician No Primary Care Physician Admission Diagnosis pancreatitis, intractable abdominal pain, dehydration-mild Diagnoses: (1) Abdominal pain Diagnosis: Principal (2) Nausea & vomiting Diagnosis: Principal (3) Hematemesis Diagnosis: Principal Chief Complaint: Abdominal pain with nausea vomiting Travel History International Travel<30 Days: No Contact w/Intl Traveler <30 Da: No Traveled to Known Affected Are: No History of Present Illness Written by Joo Mccurdy, acting as scribe for Dr. Frye on 08/03/17 at 14: 18. 32 year-old male with known history of polysubstance abuse, history of colitis, asthma, chronic smoker who presented to hospital because of nausea, vomiting, hematemesis. Patient states that he was in normal state of health until he woke up yesterday morning with nausea. He did eat breakfast and in the vomiting got back up. He states that he continued to vomit up everything he ate for lunch and dinner that day. What prompted him to come to emergency department because he had intractable abdominal pain 7/10 on a pain scale which is located in the lower abdomen mainly in the right lower quadrant, he indicates that he vomited up blood just prior to come to emergency department he states that it was a maroon-colored material. He thought it was from all the vomiting he was doing. Patient had workup done emergency department found to have a mildly elevated lipase level, leukocytosis. CT scan of the abdomen does not indicate any acute abnormality. Urine toxicology screen does indicate positive marijuana. Patient states that he is smoking marijuana on a regular basis. 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 He does drink alcohol last time he drank anything was 2 nights ago which 3 tall boy beers. Because the patient intractable pain is recommended by the ER physician that the patient be observed for further evaluation management. Patient does have history of colitis, however no indications of what form. His last admission 2008 is recommended that the patient undergo colonoscopy, however patient left AGAINST MEDICAL ADVICE at that time prior to colonoscopy. Patient has not followed up or had any endoscopy performed in outpatient setting due to financial reasons. Review of Systems Gastrointestinal: COMPLAINS OF: Abdominal pain, Nausea, Vomiting Except as stated in HPI: all other systems reviewed are Neg Past Family Social History Past Medical History History of colitis, unknown type Poly-substance abuse with alcohol use, marijuana use, opiate use, previous drug screens indicating barbiturates, benzodiazepines Asthma Chronic tobacco use History of kidney stones Past Surgical History Right elbow tendon surgery Lithotripsy Reported Medications Reported Meds & Active Scripts Active Ventolin Hfa 18 GM Inh (Albuterol Sulfate) 90 Mcg/Act Aer 2 Puff INH Q4H PRN Ventolin Hfa 18 GM Inh (Albuterol Sulfate) 90 Mcg/Act Aer 2 Puff INH Q4H PRN Allergies: Coded Allergies: bee venom protein (honey bee) (Unverified Allergy, Severe, Anaphylaxis, ) Family History Reviewed is significant for cancer Social History Patient does continues smoke one half pack a cigarettes a day. His drink alcohol on a regular basis, last time was 2 nights ago. Patient does use marijuana on a regular basis, patient does use narcotic pain medication that is not prescribed to him Physical Exam Vital Signs Vital Signs Date Time Temp Pulse Resp B/P (MAP) Pulse Ox O2 Delivery O2 Flow Rate FiO2 08/03/17 10:28 16 08/03/17 10:05 65 16 129/69 (89) 99 Room Air 08/03/17 07:10 68 17 99/58 (72) 96 Room Air 08/03/17 06:22 60 18 136/79 (98) 96 Room Air 08/03/17 05:40 20 08/03/17 04:45 63 20 137/87 (104) 99 Room Air 08/03/17 03:35 60 18 119/75 (90) 95 Room Air 08/03/17 02:39 70 18 149/87 (107) 97 Room Air 08/03/17 01:22 65 20 144/92 (109) 99 Room Air 08/03/17 01:13 18 08/02/17 23:59 20 08/02/17 23:59 98.3 89 20 149/89 (109) 97 Room Air 08/02/17 23:38 98.3 88 20 121/86 (98) 97 Physical Exam GENERAL: Well-developed, well-nourished. Vital signs do not indicate any acute pain while in the room however Patient is writhing on the bed stating that he is in pain. Alert and orientated HEENT: Head is normocephalic without any lesions or masses noted. Facial features are symmetric. Eyes: Pupils equal round reactive to light. Extraocular muscles are intact. Conjunctivae were clear. Oropharyngeal: Pharynx without any erythema edema. NECK: Supple without any masses. Trachea midline no deviation. CARDIAC: Regular rhythm, regular rate. S1/S2 are heard. No murmurs LUNGS: Clear to auscultation bilaterally. No wheeze. ABDOMEN: Soft, abdomen is tender in the lower abdomen, mainly in the right lower quadrant and infraumbilical. Nondistended. Bowel sounds heard in all 4 quadrants.Negative rebound, negative guarding EXTREMITIES: No edema, pulses are equal bilaterally. Patient has extensive tattoos over his chest, back, arms NEUROLOGY: Mood and affect appear appropriate. Cranial nerves II through XII grossly intact. moves all his extremities. Laboratory Laboratory Tests Test 08/02/17 23:50 08/03/17 00:42 08/03/17 09:10 White Blood Count 13.2 11.8 Red Blood Count 5.18 4.63 Hemoglobin 16.0 14.2 Hematocrit 47.0 42.1 Mean Corpuscular Volume 90.7 90.8 Mean Corpuscular Hemoglobin 30.9 30.7 Mean Corpuscular Hemoglobin Concent 34.1 33.8 Red Cell Distribution Width 12.3 12.3 Platelet Count 220 201 Mean Platelet Volume 9.7 10.5 Neutrophils (%) (Auto) 69.4 82.3 Lymphocytes (%) (Auto) 18.2 11.8 Monocytes (%) (Auto) 7.8 5.5 Eosinophils (%) (Auto) 4.4 0.2 Basophils (%) (Auto) 0.2 0.2 Neutrophils # (Auto) 9.2 9.8 Lymphocytes # (Auto) 2.4 1.4 Monocytes # (Auto) 1.0 0.6 Eosinophils # (Auto) 0.6 0.0 Basophils # (Auto) 0.0 0.0 CBC Comment DIFF FINAL DIFF FINAL Differential Comment Blood Urea Nitrogen 13 Creatinine 0.90 Random Glucose 123 Total Protein 7.6 Albumin 4.2 Calcium Level 9.2 Alkaline Phosphatase 66 Aspartate Amino Transf (AST/SGOT) 19 Alanine Aminotransferase (ALT/SGPT) 26 Total Bilirubin 0.6 Sodium Level 137 Potassium Level 3.5 Chloride Level 102 Carbon Dioxide Level 27.9 Anion Gap 7 Estimat Glomerular Filtration Rate 98 Lipase 431 619 Urine Color YELLOW Urine Turbidity SLIGHT Urine pH 6.5 Urine Specific [place] 1.021 Urine Protein NEG Urine Glucose (UA) NEG Urine Ketones TRACE Urine Occult Blood NEG Urine Nitrite NEG Urine Bilirubin NEG Urine Leukocyte Esterase NEG Urine WBC 0-2 Urine Squamous Epithelial Cells 0-5 Urine Amorphous Sediment FEW Urine Mucus FEW Microscopic Urinalysis Comment CULT NOT INDICATED Urine Opiates Screen NEG Urine Barbiturates Screen NEG Urine Amphetamines Screen NEG Urine Benzodiazepines Screen NEG Urine Cocaine Screen NEG Urine Cannabinoids Screen POS Result Diagram: 08/03/17 0910 08/02/17 8120 Imaging Last Impressions Abdomen/Pelvis CT 08/03/17 0016 Signed Impressions: Service Date/Time: Thursday, August 03, 2017 01:10 - CONCLUSION: 1. No acute findings. No significant change from July 2015. MD Justino Rey VTE Risk Assessment Caprini VTE Risk Assessment: No/Low Risk (score <= 1) Caprini Risk Assessment Model Point Value = 1 Point Value = 2 Point Value = 3 Point Value = 5 Age 41-60 Minor surgery BMI > 25 kg/m2 Swollen legs Varicose veins or History of unexplained or recurrent spontaneous Oral contraceptives or hormone replacement Sepsis (< 1 month) Serious lung disease, including pneumonia (< 1 month) Abnormal pulmonary function Acute myocardial infarction Congestive heart failure (< 1 month) History of inflammatory bowel disease Medical patient at bed rest Age 61-74 Arthroscopic surgery Major open surgery (> 45 min) Laparoscopic surgery (> 45 min) Malignancy Confined to bed (> 72 hours) Immobilizing plaster cast Central venous access Age >= 75 History of VTE Family history of VTE Factor V Leiden Prothrombin [id number] Lupus anticoagulant Anticardiolipin antibodies Elevated serum homocysteine Heparin-induced thrombocytopenia Other congenital or acquired thrombophilia Stroke (< 1 month) Elective arthroplasty Hip, pelvis, or leg fracture Acute spinal cord injury (< 1 month) Prophylaxis Regimen Total Risk Factor Score Risk Level Prophylaxis Regimen 0-1 Low Early ambulation 2 Moderate Order ONE of the following: *Sequential Compression Device (SCD) *Heparin 5000 units SQ BID 3-4 Higher Order ONE of the following medications: *Heparin 5000 units SQ TID *Enoxaparin/Lovenox 40 mg SQ daily (WT < 150 kg, CrCl > 30 mL/min) *Enoxaparin/Lovenox 30 mg SQ daily (WT < 150 kg, CrCl > 10-29 mL/min) *Enoxaparin/Lovenox 30 mg SQ BID (WT < 150 kg, CrCl > 30 mL/min) AND/OR *Sequential Compression Device (SCD) 5 or more Highest Order ONE of the following medications: *Heparin 5000 units SQ TID (Preferred with Epidurals) *Enoxaparin/Lovenox 40 mg SQ daily (WT < 150 kg, CrCl > 30 mL/min) *Enoxaparin/Lovenox 30 mg SQ daily (WT < 150 kg, CrCl > 10-29 mL/min) *Enoxaparin/Lovenox 30 mg SQ BID (WT < 150 kg, CrCl > 30 mL/min) AND *Sequential Compression Device (SCD) Assessment and Plan Assessment and Plan 32-year-old male who presented with one-day history of abdominal pain vomiting of blood Intractable lower abdominal pain with nausea vomiting Patient with elevated lipase level, however CT scan does not indicate any acute abnormality Continue IV fluids Clear liquid diet, will make nothing by mouth after midnight for possible procedure in the a.m. Continue anti-emetic Hematemesis status post nausea vomiting Continue monitor hemoglobin and hematocrit GI consulted for recommendations Patient require EGD for evaluation possible Shanda-Jarrett tear Start Protonix IV every 12 hours Polysubstance abuse Patient with alcohol use, marijuana use, opiate use of medications not prescribed to him Patient's symptoms could be from cyclic vomiting from marijuana abuse Will continue monitor for any withdrawal symptoms Will need to be cautious with administration of narcotic pain medication, possible seeking behavior DVT prevention Sequential compression devices This note was transcribed by omid Mccurdy. I, Dr. Patricia Frye personally performed the history, physical exam, and medical decision making; and confirmed the accuracy of the information in the transcribed note. Authenticated by Dr. Patricia Frye on 08/03/17 at 14:18. Code Status full Joo Mccurdy Aug 03, 2017 14:35 Patricia Frye MD Aug 03, 2017 16:27
[2017-08-03] MEDS: PANTOPRAZOLE SODIUM 40 MG VIAL IV PUSH SCH (15:32)
[2017-08-03] MEDS: RESP: ALBUTEROL 2.5 MG/IPRATROPIUM 0.5 MG NEB (PRN) NEB (19:07)
[2017-08-04] VITALS: BP 118/69; PULSE 71; RESP 20; TEMP 97.3; O2SAT 100
[2017-08-04] MEDS: SODIUM CHLOR 0.9% 1000 ML INJ 1,000 ML IV SCH ×3 (01:45→21:41)
[2017-08-04] MEDS: PANTOPRAZOLE SODIUM 40 MG VIAL IV PUSH SCH ×2 (02:09→16:00)
[2017-08-04] MEDS: HYDROmorphone HCL PF 2 MG/ML VIAL IV PRN ×2 (02:11→05:29)
[2017-08-04] MEDS: ONDANSETRON HCL 4 MG/2 ML VIAL IVP PRN ×3 (05:27→17:55)
[2017-08-04 06:40] LABS: AUTOMATED NEUTROPHIL # 4.4 TH/MM3 (1.8-7.7); BASOPHIL % 0.5 % (0.0-2.0); EOSINOPHIL # 0.5 TH/MM3 (0-0.4); EOSINOPHIL % 6.3 % (0.0-4.0); HEMATOCRIT 41.7 % (39.0-51.0); HEMOGLOBIN 13.6 GM/DL (13.0-17.0); LYMPH % 35.1 % (9.0-44.0); LYMPHOCYTE # 2.9 TH/MM3 (1.0-4.8); MEAN CELL VOLUME 92.4 FL (80.0-100.0); MEAN CORPUSCULAR HEMOGLOBIN 30.2 PG (27.0-34.0); MEAN CORPUSCULAR HGB CONC 32.7 % (32.0-36.0); MEAN PLATELET VOLUME 11.3 FL (7.0-11.0); MONO % 6.6 % (0.0-8.0); MONOCYTE # 0.5 TH/MM3 (0-0.9); NEUT % 51.5 % (16.0-70.0); PLATELET COUNT 173 TH/MM3 (150-450); RED BLOOD COUNT 4.51 MIL/MM3 (4.50-5.90); RED CELL DISTRIBUTION WIDTH 12.6 % (11.6-17.2); WHITE BLOOD COUNT 8.3 TH/MM3 (4.0-11.0)
[2017-08-04 07:27] LABS: BLOOD UREA NITROGEN 9 MG/DL (7-18); CALCIUM 8.2 MG/DL (8.5-10.1); CREATININE 0.85 MG/DL (0.60-1.30); GLOMERULAR FILTRATION RATE 104 ML/MIN (>89); GLUCOSE,RANDOM 79 MG/DL (74-106); TOTAL PROTEIN 5.7 GM/DL (6.4-8.2)
[2017-08-04 07:28] LABS: ALKALINE PHOSPHATASE 49 U/L (45-117); ALT (GPT) 19 U/L (12-78); AST (GOT) 14 U/L (15-37); SODIUM (NA) 140 MEQ/L (136-145); TOTAL BILIRUBIN ADULT 0.6 MG/DL (0.2-1.0)
[2017-08-04 07:29] LABS: BICARBONATE 28.3 MEQ/L (21.0-32.0); CHLORIDE 107 MEQ/L (98-107)
[2017-08-04 08:00] VITALS: BP 149/86; PULSE 72; RESP 14; TEMP 96.1; O2SAT 100
[2017-08-04] MEDS: RESP: ALBUTEROL 2.5 MG/IPRATROPIUM 0.5 MG NEB (PRN) NEB ×2 (08:03→18:22)
[2017-08-04] MEDS ORDERED: ACETAMINOPHEN/HYDROcodone 325 MG/10 MG TAB PO PRN (08:15)
[2017-08-04] MEDS: ACETAMINOPHEN/HYDROcodone 325 MG/5 MG TAB PO PRN ×2 (08:24→12:24)
--- NOTE | 2017-08-04 08:27 | PD.CONS ---
HPI History of Present Illness This is a 32 year old male who presents with complaints of abdominal pain with nausea and vomiting with an episode of hematemesis the patient states that after eating about 2 days ago he began with acute upper abdominal pain with nausea and vomiting and he had an episode of hematemesis currently though he complains of the pain being mostly localized in the right lower quadrant the patient admits to using the marijuana and Excedrin and has never had an upper endoscopy in the past and was never diagnosed with any peptic ulcer disease he did experience C. difficile colitis a few years ago and it was severe enough to where he was almost going to receive the stool transplant but that free to [place] so he signed a AMA at that point in time On admission the patient had a CT of the abdomen done and this was unremarkable he also had blood work which was mostly unremarkable except for his lipase being somewhat elevated PFSH Past Medical History History of colitis, unknown type Poly-substance abuse with alcohol use, marijuana use, opiate use, previous drug screens indicating barbiturates, benzodiazepines Asthma Chronic tobacco use History of kidney stones Past Surgical History Right elbow tendon surgery Lithotripsy Coded Allergies: bee venom protein (honey bee) (Unverified Allergy, Severe, Anaphylaxis, ) Medications Current Medications Hydromorphone HCl (Dilaudid Pf Inj) 1 mg ONCE ONCE IVS Last administered on at 00:43; Start 08/03/17 at 00:30; Stop 08/03/17 at 00:31; Status DC Ondansetron HCl (Zofran Inj) 4 mg ONCE ONCE IVP Last administered on at 00:43; Start 08/03/17 at 00:30; Stop 08/03/17 at 00:31; Status DC Sodium Chloride (NS Flush) 2 ml UNSCH PRN IV FLUSH FLUSH AFTER USING IV ACCESS Last administered on 08/03/17at 00:44; Start 08/03/17 at 00:30; Stop 08/03/17 at 02:29; Status DC Sodium Chloride 1,000 ml @ 2,000 mls/hr Q30M IV Last administered on at 01:27; Start 08/03/17 at 00:30; Stop 08/03/17 at 01:29; Status DC Iohexol (Omnipaque 350 Inj) 100 ml STK-MED ONCE IVCONTRAST Last administered on 08/03/17at 01:25; Start 08/03/17 at 01:25; Stop 08/03/17 at 01:26; Status DC Hydromorphone HCl (Dilaudid Pf Inj) 1 mg ONCE ONCE IVP ; Start 08/03/17 at 02: 15; Stop 08/03/17 at 02:16; Status DC Ondansetron HCl (Zofran Inj) 4 mg ONCE ONCE IV Last administered on 08/03/17at 02:30; Start 08/03/17 at 02:15; Stop 08/03/17 at 02:16; Status DC Hydromorphone HCl (Dilaudid Pf Inj) 1 mg Q4H PRN IV PUSH PAIN 6-10; Start 08/03 at 02:15; Status UNV Sodium Chloride 1,000 ml @ 100 mls/hr Q10H IV Last administered on 08/04/17at 01:45; Start 08/03/17 at 02:12 Sodium Chloride (NS Flush) 2 ml UNSCH PRN IV FLUSH FLUSH AFTER USING IV ACCESS ; Start 08/03/17 at 02:15 Sodium Chloride (NS Flush) 2 ml BID IV FLUSH ; Start 08/03/17 at 09:00 Ondansetron HCl (Zofran Inj) 4 mg Q6H PRN IVP NAUSEA OR VOMITING Last administered on 08/04/17at 05:27; Start 08/03/17 at 02:15 Acetaminophen (Tylenol) 650 mg Q6H PRN PO FEVER/PAIN SCALE 1 TO 2; Start at 02:15 Acetaminophen/ Hydrocodone Bitart (Gardena 5-325 Mg) 1 tab Q4H PRN PO PAIN SCALE 3 TO 5 Last administered on 08/03/17at 04:40; Start 08/03/17 at 02:15 Senna/Docusate Sodium (Angeline-Colace) 1 tab BID PO Last administered on at 09:23; Start 08/03/17 at 09:00 Magnesium Hydroxide (Milk Of Magnesia Liq) 30 ml Q12H PRN PO Mild constipation ; Start 08/03/17 at 02:15 Sennosides (Senokot) 17.2 mg Q12H PRN PO Moderate constipation; Start 08/03/17 at 02:15 Bisacodyl (Dulcolax Supp) 10 mg DAILY PRN RECTAL SEVERE CONSITIPATION; Start at 02:15 Lactulose (Lactulose Liq) 30 ml DAILY PRN PO SEVERE CONSITIPATION; Start at 02:15 Atropine/Hyoscyam/ Phenobarb/Scopol ( Liq) 10 ml Q6H PRN PO GI DISTRESS ; Start 08/03/17 at 02:15 Al Hydrox/Mg Hydrox/Simethicone (Mag-Al Plus Susp Liq) 30 ml Q6H PRN PO GI DISTRESS; Start 08/03/17 at 02:15 Lidocaine HCl (Xylocaine 2% Viscous) 15 ml Q6H PRN SWISH-SWAL GI DISTRESS; Start 08/03/17 at 02:15 Hydromorphone HCl (Dilaudid Pf Inj) 1 mg Q4H PRN IV BREAKTHROUGH PAIN Last administered on 08/04/17at 05:29; Start 08/03/17 at 02:30 Pantoprazole Sodium (Protonix Inj) 40 mg Q12H IV PUSH Last administered on 08/04at 02:09; Start 08/03/17 at 15:00 Albuterol/ Ipratropium (Duoneb Neb) 1 ampule Q6HR NEB PRN NEB SOB/WHEEZING Last administered on 08/04/17at 08:03; Start 08/03/17 at 19:00 Acetaminophen/ Hydrocodone Bitart (Gardena 10-325 Mg) 1 tab Q6H PRN PO PAIN SCALE 6 TO 10; Start 08/04/17 at 08:15; Status UNV Family History Noncontributory Social History Patient does continues smoke one half pack a cigarettes a day. His drink alcohol on a regular basis, last time was 2 nights ago. Patient does use marijuana on a regular basis, patient does use narcotic pain medication that is not prescribed to him Review of Systems Review of systems Patient denies any headache dizziness blurry vision, denies any chest pain shortness of breath cough fever chills, Denies any palpitations or fatigue denies any polyuria dysuria hematuria, denies any numbness tingling or weakness, denies any skin rash pruritus or jaundice, denies any easy bruising or bleeding tendency, denies any recent change in mood GI Exam Vitals I&O Vital Signs Date Time Temp Pulse Resp B/P (MAP) Pulse Ox O2 Delivery O2 Flow Rate FiO2 08/04/17 00:00 97.3 71 20 118/69 (85) 100 08/03/17 20:00 96.3 64 20 145/83 (103) 99 08/03/17 18:09 97.9 62 17 112/59 (76) 99 08/03/17 18:00 96.2 71 14 126/86 (99) 98 08/03/17 17:52 16 08/03/17 14:00 53 17 143/86 (105) 99 Room Air 08/03/17 10:05 65 16 129/69 (89) 99 Room Air I/O 08/03/17 08/03/17 08/03/17 08/04/17 08/04/17 08/04/17 07:00 15:00 23:00 07:00 15:00 23:00 Intake Total 2000 ml 1000 ml 1150 ml Output Total 300 ml 900 ml 600 ml Balance 1700 ml 1000 ml -900 ml 550 ml Intake IV Total 2000 ml 1000 ml 1150 ml Output Urine Total 300 ml 900 ml 600 ml # Voids 1 Imaging Last Impressions Abdomen/Pelvis CT 08/03/17 0016 Signed Impressions: Service Date/Time: Thursday, August 03, 2017 01:10 - CONCLUSION: 1. No acute findings. No significant change from July 2015. Orlando Segundo MD Laboratory Test 08/03/17 09:10 08/04/17 05:15 White Blood Count 11.8 TH/MM3 8.3 TH/MM3 Red Blood Count 4.63 MIL/MM3 4.51 MIL/MM3 Hemoglobin 14.2 GM/DL 13.6 GM/DL Hematocrit 42.1 % 41.7 % Mean Corpuscular Volume 90.8 FL 92.4 FL Mean Corpuscular Hemoglobin 30.7 PG 30.2 PG Mean Corpuscular Hemoglobin Concent 33.8 % 32.7 % Red Cell Distribution Width 12.3 % 12.6 % Platelet Count 201 TH/MM3 173 TH/MM3 Mean Platelet Volume 10.5 FL 11.3 FL Neutrophils (%) (Auto) 82.3 % 51.5 % Lymphocytes (%) (Auto) 11.8 % 35.1 % Monocytes (%) (Auto) 5.5 % 6.6 % Eosinophils (%) (Auto) 0.2 % 6.3 % Basophils (%) (Auto) 0.2 % 0.5 % Neutrophils # (Auto) 9.8 TH/MM3 4.4 TH/MM3 Lymphocytes # (Auto) 1.4 TH/MM3 2.9 TH/MM3 Monocytes # (Auto) 0.6 TH/MM3 0.5 TH/MM3 Eosinophils # (Auto) 0.0 TH/MM3 0.5 TH/MM3 Basophils # (Auto) 0.0 TH/MM3 0.0 TH/MM3 CBC Comment DIFF FINAL DIFF FINAL Differential Comment Lipase 619 U/L Blood Urea Nitrogen 9 MG/DL Creatinine 0.85 MG/DL Random Glucose 79 MG/DL Total Protein 5.7 GM/DL Albumin 3.0 GM/DL Calcium Level 8.2 MG/DL Alkaline Phosphatase 49 U/L Aspartate Amino Transf (AST/SGOT) 14 U/L Alanine Aminotransferase (ALT/SGPT) 19 U/L Total Bilirubin 0.6 MG/DL Sodium Level 140 MEQ/L Potassium Level 3.5 MEQ/L Chloride Level 107 MEQ/L Carbon Dioxide Level 28.3 MEQ/L Anion Gap 5 MEQ/L Estimat Glomerular Filtration Rate 104 ML/MIN Physical Examination HEENT: Pupils round and reactive to light; normocephalic; atraumatic; no jaundice. Throat is clear. NECK: Neck is supple, no JVD, no lymphadenopathy. CHEST: Chest is clear to auscultation and percussion. CARDIAC: Regular rate and rhythm with no murmur gallop or rubs. ABDOMEN: Soft, nondistended, mild diffuse tenderness no rebound or guarding; no hepatosplenomegaly; bowel sounds are present in all four quadrants. EXTREMITIES: No clubbing, cyanosis, or edema. SKIN: Normal; no rash; no jaundice. MUFF WINDER: No focal deficits; alert and oriented times three. Assessment and Plan Plan Abdominal pain not specific for pancreatitis Nausea and vomiting with an episode of hematemesis no active bleeding and stable hemodynamically and stable labs Polysubstance abuse including alcohol and marijuana At this point we'll continue with IV hydration and close monitoring Would recommend that we minimize narcotics at this point Patient will need an upper endoscopy in the a.m. Agree with current supportive care otherwise Patient advised to quit alcohol and marijuana and drugs in general Further recommendations shall depend on his hospital course Rik Willard MD Aug 04, 2017 08:27
[2017-08-04] MEDS: SODIUM CHLORIDE 0.9% FLUSH 10 ML FLUSH IV FLUSH SCH ×2 (09:00→21:41)
[2017-08-04] MEDS: DOCUSATE SODIUM 50 MG/SENNA 8.6 MG TAB PO SCH ×2 (09:00→21:00)
--- NOTE | 2017-08-04 09:14 | HHI.PR ---
Subjective Remarks Pt complains of pain, and nausea. Pt understands that he must take pills and cannot rely on IV narcotics. Pt spoke w GI physician and is scheduled for colonoscopy tomorrow morning. Pt was once again counseled on quitting smoking MJ as he most likely is experiencing side effects from it i.e cyclic vomiting. Pt states he only does it recreationally w friends. I again explained to him the importance of quitting. He voices his understanding. Objective Vitals Vital Signs Date Time Temp Pulse Resp B/P (MAP) Pulse Ox O2 Delivery O2 Flow Rate FiO2 08/04/17 00:00 97.3 71 20 118/69 (85) 100 08/03/17 20:00 96.3 64 20 145/83 (103) 99 08/03/17 18:09 97.9 62 17 112/59 (76) 99 08/03/17 18:00 96.2 71 14 126/86 (99) 98 08/03/17 17:52 16 08/03/17 14:00 53 17 143/86 (105) 99 Room Air 08/03/17 10:05 65 16 129/69 (89) 99 Room Air I/O 08/03/17 08/03/17 08/03/17 08/04/17 08/04/17 08/04/17 07:00 15:00 23:00 07:00 15:00 23:00 Intake Total 2000 ml 1000 ml 1150 ml Output Total 300 ml 900 ml 600 ml Balance 1700 ml 1000 ml -900 ml 550 ml Intake IV Total 2000 ml 1000 ml 1150 ml Output Urine Total 300 ml 900 ml 600 ml # Voids 1 Result Diagram: 08/04/17 0515 08/04/17 0515 Imaging Last Impressions Abdomen/Pelvis CT 08/03/17 0016 Signed Impressions: Service Date/Time: Thursday, August 03, 2017 01:10 - CONCLUSION: 1. No acute findings. No significant change from July 2015. Orlando Segundo MD Objective Remarks GENERAL: Well-developed, well-nourished. complaining of pain NECK: Trachea midline no deviation. CARDIAC: Regular rhythm, regular rate. S1/S2 are heard. No murmurs LUNGS: Clear to auscultation bilaterally. No wheeze. ABDOMEN: Soft, abdomen is tender in the lower abdomen, mainly in the right lower quadrant and infraumbilical. However unsure how much pain pt is experiencing as it does appear somewhat exaggerated. Nondistended. Bowel sounds heard in all 4 quadrants. Negative rebound, negative guarding EXTREMITIES: No edema, pulses are equal bilaterally. Patient has extensive tattoos over his chest, back, arms NEUROLOGY: Mood and affect appear appropriate. moves all his extremities. A/P Problem List: (1) Abdominal pain ICD Code: R10.9 - Unspecified abdominal pain (2) Nausea & vomiting ICD Code: R11.2 - Nausea with vomiting, unspecified (3) Hematemesis ICD Code: K92.0 - Hematemesis Assessment and Plan 32-year-old male who presented with one-day history of abdominal pain vomiting of blood Intractable lower abdominal pain with nausea vomiting w one episode of Hematemesis post emesis. Patient with mildly elevated lipase level, however CT scan does not indicate any acute abnormality. Pt pain location also not specific to pancreatitis. continue IVFs. GI did evaluate the pt and recommends EGD in AM. Continue clear liquid diet, and NPO after midnight for EGD in the a.m. Continue anti-emetic. Continue monitor H&H on Protonix IV every 12 hours Limit opiod use. d/c IV dilaudid. Polysubstance abuse Patient with alcohol use, marijuana use, opiate use of medications not prescribed to him Patient's symptoms could be from cyclic vomiting from marijuana abuse. He has been extensively counseled on quitting this habits. He voices his understanding. monitor for any withdrawal symptoms cautioun with administration of narcotic pain medication, possible seeking behavior DVT prevention Sequential compression devices Discharge Planning scheduled for EGD in AM Patricia Frye MD Aug 04, 2017 09:14
[2017-08-04 12:00] VITALS: BP 152/92; PULSE 64; RESP 14; TEMP 98.5; O2SAT 100
[2017-08-04 16:00] VITALS: BP 137/88; PULSE 60; RESP 16; TEMP 98; O2SAT 99
[2017-08-04] MEDS: ACETAMINOPHEN/HYDROcodone 325 MG/7.5 MG TAB PO PRN ×2 (16:00→21:50)
[2017-08-04] MEDS ORDERED: LACTATED RINGER'S 1000 ML IV PRN (23:45)
[2017-08-05] VITALS: BP 152/98; PULSE 59; RESP 20; TEMP 98.1; O2SAT 99
[2017-08-05] MEDS: PANTOPRAZOLE SODIUM 40 MG VIAL IV PUSH SCH (03:19)
[2017-08-05] MEDS: ACETAMINOPHEN/HYDROcodone 325 MG/7.5 MG TAB PO PRN ×2 (03:21→09:55)
[2017-08-05] MEDS: ONDANSETRON HCL 4 MG/2 ML VIAL IVP PRN ×2 (03:23→09:55)
[2017-08-05] MEDS: SODIUM CHLOR 0.9% 1000 ML INJ 1,000 ML IV SCH (05:36)
[2017-08-05 06:24] LABS: HEMOGLOBIN 13.1 GM/DL (13.0-17.0); MEAN CELL VOLUME 91.5 FL (80.0-100.0); MEAN CORPUSCULAR HEMOGLOBIN 29.9 PG (27.0-34.0); MEAN CORPUSCULAR HGB CONC 32.7 % (32.0-36.0); MEAN PLATELET VOLUME 10.7 FL (7.0-11.0); PLATELET COUNT 178 TH/MM3 (150-450); RED BLOOD COUNT 4.37 MIL/MM3 (4.50-5.90); RED CELL DISTRIBUTION WIDTH 12.3 % (11.6-17.2); WHITE BLOOD COUNT 7.5 TH/MM3 (4.0-11.0)
[2017-08-05 06:44] LABS: CHLORIDE 108 MEQ/L (98-107); SODIUM (NA) 140 MEQ/L (136-145)
[2017-08-05 07:04] LABS: ALBUMIN 3.1 GM/DL (3.4-5.0); ALKALINE PHOSPHATASE 48 U/L (45-117); ALT (GPT) 17 U/L (12-78); AMYLASE 39 U/L (25-115); AST (GOT) 11 U/L (15-37); BICARBONATE 25.6 MEQ/L (21.0-32.0); BLOOD UREA NITROGEN 5 MG/DL (7-18); CALCIUM 8.1 MG/DL (8.5-10.1); CREATININE 0.72 MG/DL (0.60-1.30); GLOMERULAR FILTRATION RATE 127 ML/MIN (>89); GLUCOSE,RANDOM 89 MG/DL (74-106); TOTAL BILIRUBIN ADULT 0.7 MG/DL (0.2-1.0); TOTAL PROTEIN 5.8 GM/DL (6.4-8.2)
[2017-08-05 08:13] VITALS: BP 152/98; PULSE 59; RESP 20; TEMP 98.1; O2SAT 99
--- NOTE | 2017-08-05 08:28 | PD.PROCEDR ---
GI Procedure PROCEDURE PERFORMED EGD with biopsy INDICATION FOR PROCEDURE Nausea vomiting, hematemesis PROCEDURE: The procedure, risks and benefits were discussed with Mr. Yang and informed consent was obtained. Anesthesia sedated him with Diprivan. He was placed in the left lateral decubitus position. EGD: The Pentax videoscope was introduced through the oropharynx and advanced to the second portion of the duodenum under direct visualization. Retroflexion was performed in the stomach. FINDINGS: The esophagus there was distal esophageal mucosal erythema in a streaky fashion suggestive of reflux esophagitis grade B this was biopsied The stomach there was some patchy erythema in the upper gastric body and to a lesser degree the rest of the gastric body and antrum no ulcers no erosions no blood or bleeding antral biopsies were taken further evaluation The duodenum this was normal ESTIMATED BLOOD LOSS: None SPECIMENS REMOVED: Esophageal and gastric biopsies COMPLICATIONS: None IMPRESSION: Reflux esophagitis Gastritis Most likely cause of the nausea and vomiting is the marijuana PLAN: Await biopsies Continue PPI Avoid NSAIDs and aspirin Stop marijuana Advance diet Rik Willard MD Aug 05, 2017 08:28
[2017-08-05 09:40] VITALS: BP 155/88; PULSE 59; RESP 16; TEMP 97.1; O2SAT 99
[2017-08-05] MEDS: SODIUM CHLORIDE 0.9% FLUSH 10 ML FLUSH IV FLUSH SCH (09:54)
[2017-08-05] MEDS: DOCUSATE SODIUM 50 MG/SENNA 8.6 MG TAB PO SCH (09:55)
[2017-08-05] MEDS ORDERED: OMEP40CA2 PO (11:47)
--- NOTE | 2017-08-05 11:50 | HHI.DCPOC ---
Discharge Care Plan Diagnosis: (1) Abdominal pain (2) Nausea & vomiting (3) Gastritis (4) Reflux esophagitis Goals to Promote Your Health * To prevent worsening of your condition and complications * To maintain your health at the optimal level Directions to Meet Your Goals Take your medications as prescribed Follow your dietary instruction Follow activity as directed Keep your appointments as scheduled Take your immunizations and boosters as scheduled If your symptoms worsen call your PCP, if no PCP go to Urgent Care Center or Emergency Room Smoking is Dangerous to Your Health. Avoid second hand smoke Call the 24-hour hour crisis hotline for domestic abuse at Joo Mccurdy Aug 05, 2017 11:50
[2017-08-05 12:00] VITALS: BP 145/84; PULSE 61; RESP 16; TEMP 98.1; O2SAT 98
[2017-08-05] MEDS ORDERED: PROPOFOL 200 MG/20 ML AMP IV ONE ×2 (12:00)
[2017-08-05] MEDS ORDERED: LIDOCAINE HCL 1% PF 5 ML SYRINGE OTHER ONE (12:00)
--- NOTE | 2017-08-05 13:15 | HHI.DS ---
Discharge Summary Admission Date Aug 03, 2017 at 02:16 Discharge Date: Aug 05, 2017 Admitting Diagnosis pancreatitis, intractable abdominal pain, dehydration-mild (1) Abdominal pain ICD Code: R10.9 - Unspecified abdominal pain Diagnosis: Principal (2) Nausea & vomiting ICD Code: R11.2 - Nausea with vomiting, unspecified Diagnosis: Principal (3) Hematemesis ICD Code: K92.0 - Hematemesis Diagnosis: Principal Procedures EGD: Showed gastritis, reflux esophagitis. Brief History - From Admission Written by Joo Mccurdy, acting as scribe for Dr. Frye on 08/03/17 at 14: 18. 32 year-old male with known history of polysubstance abuse, history of colitis, asthma, chronic smoker who presented to hospital because of nausea, vomiting, hematemesis. Patient states that he was in normal state of health until he woke up yesterday morning with nausea. He did eat breakfast and in the vomiting got back up. He states that he continued to vomit up everything he ate for lunch and dinner that day. What prompted him to come to emergency department because he had intractable abdominal pain 7/10 on a pain scale which is located in the lower abdomen mainly in the right lower quadrant, he indicates that he vomited up blood just prior to come to emergency department he states that it was a maroon-colored material. He thought it was from all the vomiting he was doing. Patient had workup done emergency department found to have a mildly elevated lipase level, leukocytosis. CT scan of the abdomen does not indicate any acute abnormality. Urine toxicology screen does indicate positive marijuana. Patient states that he is smoking marijuana on a regular basis. 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 He does drink alcohol last time he drank anything was 2 nights ago which 3 tall boy beers. Because the patient intractable pain is recommended by the ER physician that the patient be observed for further evaluation management. Patient does have history of colitis, however no indications of what form. His last admission 2008 is recommended that the patient undergo colonoscopy, however patient left AGAINST MEDICAL ADVICE at that time prior to colonoscopy. Patient has not followed up or had any endoscopy performed in outpatient setting due to financial reasons. CBC/BMP: 08/05/17 0525 08/05/17 0525 Significant Findings Laboratory Tests Test 08/02/17 23:50 08/03/17 00:42 08/03/17 09:10 08/04/17 05:15 White Blood Count 13.2 TH/MM3 (4.0-11.0) 11.8 TH/MM3 (4.0-11.0) Eosinophils (%) (Auto) 4.4 % (0.0-4.0) 6.3 % (0.0-4.0) Neutrophils # (Auto) 9.2 TH/MM3 (1.8-7.7) 9.8 TH/MM3 (1.8-7.7) Monocytes # (Auto) 1.0 TH/MM3 (0-0.9) Eosinophils # (Auto) 0.6 TH/MM3 (0-0.4) 0.5 TH/MM3 (0-0.4) Random Glucose 123 MG/DL (74-106) Lipase 431 U/L (73-393) 619 U/L (73-393) Urine Ketones TRACE mg/dL (NEG) Urine Mucus FEW /lpf (OCC) Urine Cannabinoids Screen POS (NEG) Neutrophils (%) (Auto) 82.3 % (16.0-70.0) Mean Platelet Volume 11.3 FL (7.0-11.0) Total Protein 5.7 GM/DL (6.4-8.2) Albumin 3.0 GM/DL (3.4-5.0) Calcium Level 8.2 MG/DL (8.5-10.1) Aspartate Amino Transf (AST/SGOT) 14 U/L (15-37) Test 08/05/17 05:25 Red Blood Count 4.37 MIL/MM3 (4.50-5.90) Blood Urea Nitrogen 5 MG/DL (7-18) Total Protein 5.8 GM/DL (6.4-8.2) Albumin 3.1 GM/DL (3.4-5.0) Calcium Level 8.1 MG/DL (8.5-10.1) Aspartate Amino Transf (AST/SGOT) 11 U/L (15-37) Potassium Level 3.4 MEQ/L (3.5-5.1) Chloride Level 108 MEQ/L (98-107) Imaging Last Impressions Abdomen/Pelvis CT 08/03/17 0016 Signed Impressions: Service Date/Time: Thursday, August 03, 2017 01:10 - CONCLUSION: 1. No acute findings. No significant change from July 2015. Orlando Segundo MD PE at Discharge GENERAL: Well-developed, well-nourished. complaining of pain NECK: Trachea midline no deviation. CARDIAC: Regular rhythm, regular rate. S1/S2 are heard. No murmurs LUNGS: Clear to auscultation bilaterally. No wheeze. ABDOMEN: Soft, abdomen is tender in the lower abdomen, mainly in the right lower quadrant and infraumbilical. However unsure how much pain pt is experiencing as it does appear somewhat exaggerated. Nondistended. Bowel sounds heard in all 4 quadrants. Negative rebound, negative guarding EXTREMITIES: No edema, pulses are equal bilaterally. Patient has extensive tattoos over his chest, back, arms NEUROLOGY: Mood and affect appear appropriate. moves all his extremities. Hospital Course 32 year-old male who originally presented to hospital on 08/03/17 because of recurrent intractable nausea, vomiting, lower abdominal pain. The patient had acute onset abdominal pain with nausea vomiting and possible hematemesis. Patient had workup done emergency department and found to have mildly elevated lipase level, CT scan was performed which did not indicate any acute abnormality or any signs of pancreatitis. Patient was recommended observation the hospital. Truss Builder was consulted. Patient started on Protonix IV twice daily. Pain control. IV fluids. Patient clinically improved. He did undergo EGD which did show gastritis with reflux esophagitis. Case was discussed with the patient as well as his mother. She indicated patient has disease episodes at least twice a year. It because he does not follow a proper diet, he does not take proton pump inhibitor on a regular basis like he is supposed to. Patient clinically improved at this time. Patient recommended to continue proton pump inhibitor upon discharge. Patient is agreeable with discharge today. Will plan discharge accordingly. Pt Condition on Discharge: Stable Discharge Disposition: Discharge Home Discharge Time: > 30 minutes Discharge Instructions DIET: Follow Instructions for: As Tolerated, No Restrictions Activities you can perform: Regular-No Restrictions Activities to Avoid: Driving for 24 hrs Follow up Referrals: Gastroenterology - 2 Weeks PCP Follow-up - 1 Week New Medications: Omeprazole (Omeprazole) 40 Mg Cap 40 MG PO DAILY for esophagitis, gastritis, #30 CAP 0 Refills Continued Medications: Albuterol 18 GM Inh (Ventolin Hfa 18 GM Inh) 90 Mcg/Act Aer 2 PUFF INH Q4H PRN for WHEEZING, #1 INHALER 0 Refills Albuterol 18 GM Inh (Ventolin Hfa 18 GM Inh) 90 Mcg/Act Aer 2 PUFF INH Q4H PRN for SHORTNESS OF BREATH, #1 INHALER 0 Refills Joo Mccurdy Aug 05, 2017 13:15
== END 2017-08-05 12:50 | disposition home or self-care (01) ==
LOC: PHED 23:35 → PHEDA 08-03 02:16 → PH3A 08-03 18:01
PROVIDERS: ADMIT Hospitalist; ATTEND Hospitalist
DX: R10.84 Generalized abdominal pain (principal); K92.0 Hematemesis; K21.0 Gastro-esophageal reflux disease with esophagitis; K29.70 Gastritis, unspecified, without bleeding; G43.A0 Cyclical vomiting, in migraine, not intractable; E86.0 Dehydration; F12.90 Cannabis use, unspecified, uncomplicated; J45.909 Unspecified asthma, uncomplicated; K52.9 Noninfective gastroenteritis and colitis, unspecified; Z87.442 Personal history of urinary calculi; F17.200 Nicotine dependence, unspecified, uncomplicated; K51.90 Ulcerative colitis, unspecified, without complications
CPT/HCPCS: 00731; 43239; 74177; 80053; 80307; 81001; 82150; 83690; 85025; 85027; 88305; 88312; 94640; 94664; 96361; 96374; 96375; 96376; 99285; C9113; G0378; J1170; J2405; J7030; Q9967

== ENCOUNTER 2018-01-17 14:05 | Inpatient (IN) ==
[2018-01-17] MEDS ORDERED: Tetanus/Diphtheria Toxoid Adult Vaccine Inj 0.5 ML Vial IM ONE (15:29)
[2018-01-17] MEDS ORDERED: Morphine Inj 4 MG/ML Vial IV.PUSH ONE ×2 (15:29→17:14)
--- NOTE | 2018-01-17 15:29 | ED ---
HPI General Chief complaint: Wound/Laceration Stated complaint: Lac Lt Leg Time Seen by Provider: 01/17/18 14:55 Source: patient Mode of arrival: ambulatory Limitations: no limitations History of Present Illness HPI narrative: 32-year-old male with history of epilepsy and asthma presents emergency department for evaluation of an injury sustained to the left lower extremity from a whitewasher. Patient reports 10 out of 10, severe, constant pain of the left distal lower extremity. He states that his foot feels numb on the medial aspect of it. States that flexion-extension of his left ankle exacerbates the pain. He denies any other injury. He is uncertain of his tetanus status. He has no other symptoms to report. Related Data Home Medications Medication Instructions Recorded Confirmed No Known Home Medications 01/17/18 01/17/18 Allergies Allergy/AdvReac Type Severity Reaction Status Date / Time bee venom protein (honey bee) Allergy Severe Anaphylaxis Verified 01/17/18 14:25 Review of Systems Except as stated in HPI: all other systems reviewed are negative [facility] Medical History Medical History History of epilepsy (Acute) History of asthma (Acute) Surgical History Surgical History Hx of lithotripsy (Acute) Social History Social History Substance History: No History of Abuse Second Hand Smoke Exposure: No Smoking Status: Heavy tobacco smoker Tobacco Type: Cigarettes How Often Do You Have a Drink Containing Alcohol: Never Recent Travel in [facility] [[email or web address] within the Last 8 Weeks: No Recent Out of Country Travel within the Last 8 Weeks: No Immunization History Tetanus Immunization: Unsure Hx Influenza Vaccine This Season: No Exam Narrative Exam Narrative: GENERAL: Well-nourished male patient, in mild distress secondary to pain, but appears nontoxic. SKIN: Focused skin assessment warm/dry. There is a 4 cm x 2 cm open wound on the medial aspect of the left distal lower extremity just distal to the knee. Bleeding is controlled. HEAD: Atraumatic. Normocephalic. EYES: Pupils equal and round. No scleral icterus. No injection or drainage. ENT: No nasal bleeding or discharge. Mucous membranes pink and moist. NECK: Trachea midline. No JVD. CARDIOVASCULAR: Regular rate and rhythm. No murmur appreciated. RESPIRATORY: No accessory muscle use. Clear to auscultation. Breath sounds equal bilaterally. GASTROINTESTINAL: Abdomen soft, non-tender, nondistended. Hepatic and splenic margins not palpable. MUSCULOSKELETAL: No obvious deformities. No clubbing. No cyanosis. No edema. Patient is reluctant to flex or extend the left ankle. Distal pulses are palpable. Cap refills within normal limits. Patient reports decreased sensation distal to the injury down to the foot. There is palpable crepitus on the distal lower extremity from the wound distally mostly on the medial aspect of the leg. NEUROLOGICAL: Awake and alert. No obvious cranial nerve deficits. Motor grossly within normal limits. Normal speech. PSYCHIATRIC: Appropriate mood and affect; insight and judgment normal. Course Initial Documented Vital Signs Temperature 97.6 F 01/17/18 14:25 Pulse Rate 100 H 01/17/18 14:25 Respiratory Rate 18 01/17/18 14:25 Blood Pressure 127/78 01/17/18 14:25 Pulse Oximetry 100 01/17/18 14:25 Last Documented Vital Signs Temperature 97.6 F 01/17/18 14:25 Pulse Rate 100 H 01/17/18 14:25 Respiratory Rate 18 01/17/18 14:25 Blood Pressure 127/78 01/17/18 14:25 Pulse Oximetry 100 01/17/18 14:25 Medical Decision Making MOSES Attestation MOSES supervised visit: Yes MDM Narrative Medical decision making narrative: This is a 32-year-old male who presented to the emergency department for evaluation of a wound sustained to the left distal lower extremity from a whitewasher today. Patient appears nontoxic however he appears very uncomfortable. He is treated for pain. Does have an obvious wound with palpable crepitus distal to it all the way down to his foot on the medial aspect of the left lower extremity. Patient is updated on his tetanus, given a gram of Ancef empirically, and basic lab work is ordered. I discussed the patient with my attending physician who is also assessed the patient. I have also discussed the patient with Dr. Wise, trauma surgeon on-call. He does accept this patient as a trauma patient and request that he be transferred to the main after his lab work results and CTA with runoff for evaluation of possible vascular injury is complete but it does not have to be resulted. He will review the films and evaluate the patient once he gets to the main ER and determine who needs to be consulted from there. Plan has been discussed with the patient. He is in agreement this plan of care. Patient is found to have a leukocytosis of 17,000. Extensive subcutaneous air in the left distal lower extremity is identified on x-ray. 1720 patient has returned from CTA with runoff. It is not resulted however patient will be transferred to the main ED. a call for transfer has been made. Patient has been given additional pain control. Differential Diagnosis Differential Diagnosis: Puncture wound versus laceration superficial versus deep versus compartment syndrome versus vascular injury Medical Records Medical records reviewed: Yes I reviewed the patient's medical records. Lab Data Lab results reviewed: Yes I reviewed the patient's lab results. Result diagrams: 01/17/18 15:40 01/17/18 15:40 Lab Results 01/17/18 01/17/18 01/17/18 Range/Units 15:40 15:40 15:40 CBC w Diff Auto diff final WBC 17.0 H (4.0-11.0) th/mm3 RBC 4.75 (4.50-5.90) mil/mm3 Hgb 14.6 (13.0-17.0) gm/dL Hct 43.9 (39.0-51.0) % MCV 92.4 (80.0-100.0) fL MCH 30.7 (27.0-34.0) pg MCHC 33.2 (32.0-36.0) % RDW 12.9 (11.6-17.2) % Plt Count 218 (150-450) th/mm3 MPV 10.2 (7.0-11.0) fL Neut % (Auto) 73.0 H (16.0-70.0) % Lymph % (Auto) 15.1 (9.0-44.0) % [place] % (Auto) 7.5 (0.0-8.0) % Eos % (Auto) 3.6 (0.0-4.0) % Baso % (Auto) 0.8 (0.0-2.0) % Neut # (Auto) 12.4 H (1.8-7.7) th/mm3 Lymph # (Auto) 2.6 (1.0-4.8) th/mm3 [place] # (Auto) 1.3 H (0.0-0.9) th/mm3 Eos # (Auto) 0.6 H (0.0-0.4) th/mm3 Baso # (Auto) 0.1 (0.0-0.2) th/mm3 WBC Differential . Differential Comment . PT 9.9 (9.8-11.6) sec INR 1.0 Ratio APTT 23.6 L (24.3-30.1) sec Sodium 138 (136-145) meq/L Potassium 4.0 (3.5-5.1) meq/L Chloride 103 (98-107) meq/L Carbon Dioxide 26.7 (21.0-32.0) meq/L Anion Gap 8 (5-15) meq/L BUN 18 (7-18) mg/dL Creatinine 0.89 (0.60-1.30) mg/dL Estimated GFR Greater than 89 (>89) mL/min Random Glucose 88 (74-106) mg/dL Calcium 9.3 (8.5-10.1) mg/dL Imaging Data Radiologist's impression: Tibia/Fibula X-Ray 01/17/18 15:31 CONCLUSION: Extensive soft tissue air present throughout the visualized leg Discharge Plan Discharge Disposition Patient Disposition: 30 Still Patient Discharge Condition Condition: Stable Discharge Details Diagnosis: Lower extremity injury, Soft tissue emphysema Physicians Team ED Provider: Berto Arechiga ED Midlevel Provider: Sumi Neri Primary Care Provider: Primary Care Norma Joshi Attending Provider: Raghu Wise Status ED Status: Admitted Observation Patient
[2018-01-17 15:59] LABS: Baso # (Auto) 0.1 th/mm3 (0.0-0.2); Baso % (Auto) 0.8 % (0.0-2.0); Eos # (Auto) 0.6 th/mm3 (0.0-0.4); Eos % (Auto) 3.6 % (0.0-4.0); Hematocrit 43.9 % (39.0-51.0); Hemoglobin 14.6 gm/dL (13.0-17.0); Lymph # (Auto) 2.6 th/mm3 (1.0-4.8); Lymph % (Auto) 15.1 % (9.0-44.0); Mean Corpuscular HGB Conc 33.2 % (32.0-36.0); Mean Corpuscular Hemoglobin 30.7 pg (27.0-34.0); Mean Corpuscular Volume 92.4 fL (80.0-100.0); Mean Platelet Volume 10.2 fL (7.0-11.0); Mono # (Auto) 1.3 th/mm3 (0.0-0.9); Mono % (Auto) 7.5 % (0.0-8.0); Neut # (Auto) 12.4 th/mm3 (1.8-7.7); Platelet Count 218 th/mm3 (150-450); Red Blood Count 4.75 mil/mm3 (4.50-5.90); Red Cell Distribution Width 12.9 % (11.6-17.2)
[2018-01-17 16:11] LABS: Chloride 103 meq/L (98-107); Sodium 138 meq/L (136-145)
--- NOTE | 2018-01-17 16:11 | XR ---
EXAM DATE: 01/17/2018 3:57 PM EDT AGE/SEX: 32 years / Male INDICATIONS: Laceration to distal left tibia by feather washer today. CLINICAL DATA: This is the patient's initial encounter. Patient reports that signs and symptoms have been present for 1 day and indicates a pain score of 8/10. MEDICAL/SURGICAL HISTORY: None. None. COMPARISON: No prior exams available for comparison. FINDINGS: There is extensive air present throughout the musculature and soft tissues of the left leg, mainly in the calf and ankle region however also extending up into the tissues around the knee. There is no ev idence of fracture, dislocation or bony destruction. No radiodense foreign body is appreciated. CONCLUSION: Extensive soft tissue air present throughout the visualized leg Electronically signed by: Timi Owens MD 01/17/2018 4:10 PM EDT
[2018-01-17 16:14] LABS: Calcium 9.3 mg/dL (8.5-10.1)
[2018-01-17 16:15] LABS: Anion Gap 8 meq/L (5-15); Blood Urea Nitrogen 18 mg/dL (7-18); Carbon Dioxide 26.7 meq/L (21.0-32.0); Glucose,Random 88 mg/dL (74-106)
[2018-01-17 16:17] LABS: Activated Partial Thrombo Time 23.6 sec (24.3-30.1); Prothrombin Time 9.9 sec (9.8-11.6)
[2018-01-17 16:18] LABS: Glomerular Filtration Rate Greater Than 89 mL/min (>89)
--- NOTE | 2018-01-17 17:52 | CT ---
EXAM DATE: 01/17/2018 5:47 PM EDT AGE/SEX: 32 years / Male INDICATIONS: Left lower extremity laceration from cake washer today. CLINICAL DATA: This is the patient's initial encounter. Patient reports that signs and symptoms have been present for 1 day and indicates a pain score of 10/10. MEDICAL/SURGICAL HISTORY: Asthma. Epilepsy. Lithotripsy. RADIATION DOSE: 10.25 CTDI (mGy) COMPARISON: No prior exams available for comparison. TECHNIQUE: Volumetric scanning was performed using a multi-row detector CT scanner during bolus infu omid of 95 ml Omnipaque 350 (iohexol) nonionic water-soluble contrast as a single exam dose. The d michelle was post processed with a variety of visualization algorithms including full volume maximum inten sity projection, multi-planar sliding thin slab reformation, curved planar reformation, and surface r endering techniques. Using automated exposure control and adjustment of the mA and/or kV according t o patient size, radiation dose was kept as low as reasonably achievable to obtain optimal diagnostic quality images. DICOM format image data is available electronically for review and comparison. FINDINGS: FINDINGS: Abdominal Aorta: The lumen is smooth without significant narrowing or aneurysmal dilation. The pr oximal celiac and superior mesenteric arteries are patent and normal in diameter. There are solitary renal arteries bilaterally without gross abnormality. Bifurcation: Normal. Right Pelvis: The right common iliac, internal iliac, and external iliac vessels are patent without luminal irregularity. Left Pelvis: The left common iliac, internal iliac, and external iliac vessels are patent and withou t luminal irregularity. Right Thigh: The superficial femoral and profunda vessels are patent without luminal irregularity. Left Thigh: The superficial femoral and profunda vessels are patent without luminal irregularity. Right Knee: The distal femoral and popliteal arteries are patent without luminal irregularity. Left Knee: The distal femoral and popliteal arteries are patent without luminal irregularity. Right Leg: The trifurcation is intact. Left Leg: The trifurcation is intact. Elsewhere on the exam, note is made of extensive air in the deep and superficial soft tissues of the left leg extending from the upper popliteal space inferiorly, mainly in the calf musculature but also in the circumferential subcutaneous tissues. There appears to be laceration in the medial distal howard n region. There is no evidence of discrete fluid density collection. No bony injury. CONCLUSION: No evidence of acute arterial process. Electronically signed by: Timi Owens MD 01/17/2018 5:51 PM EDT
[2018-01-17] MEDS ORDERED: Acetaminophen 325 MG Tablet PO PRN (19:36)
--- NOTE | 2018-01-17 20:23 | MH ---
cc: Raghu Wise MD DATE OF ADMISSION: 01/17/2018 CHIEF COMPLAINT: Trauma admission. HISTORY OF PRESENT ILLNESS: The patient is a 32-year-old male who was seen at [facility] today after a fall from a roof and injury to his left lower extremity. The patient states that he was pressure washing a large barn when he had lost control of the cake washer and while trying to get regain control of the cake washer it discharged water onto his left leg through a high pressure nozzle. This subsequently resulted in a controlled fall from the roof onto some hay. The patient states that he has some left lower extremity pain, but no other complaints. He does state that he did not lose consciousness after the fall and does not have any pain anywhere else, other than possibly some soreness in his left shoulder or back. The patient was able to ambulate after this injury, but had again obvious soft tissue injury to his left leg due to the cake washer. He then reported to the emergency department at [facility], and underwent evaluation. He was transferred to [facility] as a trauma admission due to the patient with the significant leg injury. Workup including CT angiogram shows no vascular injury. Per report, the patient was neurovascularly intact upon arrival to [facility]. REVIEW OF SYSTEMS: A 12-point review of systems were discussed with the patient and is negative except for the pertinent positives mentioned above in the history of present illness. PAST MEDICAL HISTORY: Asthma and seizure disorder. PAST SURGICAL HISTORY: No major operations. HOME MEDICATIONS: Albuterol p.r.n. ALLERGIES: BEE VENOM PROTEIN FROM HONEY BEE. SOCIAL HISTORY: The patient does smoke cigarettes. He denies alcohol use. Occasionally uses marijuana. FAMILY HISTORY: Noncontributory. PHYSICAL EXAMINATION: VITAL SIGNS: Temperature 97.6 degrees, heart rate 100, blood pressure 127/78, O2 saturation 100%. GENERAL: The patient is a thin, male in no acute distress. HEENT: His head is normocephalic, atraumatic. Pupils are round and reactive, accommodating to light. Sclerae are anicteric. Oral cavity is clear. Midface is stable. NECK: Supple. No JVD. Cervical spine is nontender to palpation without deformity. Trachea is midline. LUNGS: Chest wall stable without deformity. Breath sounds present bilaterally. Nonlabored breathing pattern. HEART: Regular rate and rhythm. ABDOMEN: Soft, nondistended. No organomegaly. No ascites. No seatbelt sign. BACK: No thoracic or lumbar tenderness. No CVA tenderness. Pelvis is stable without deformity. EXTREMITIES: No clubbing, cyanosis or edema of the extremities. No deformity of the 4 extremities. INTEGUMENT: Lower extremity below the knee exam reveals a laceration of 5 x 1 cm with tissue defect and some mild crepitus below. NEUROLOGIC: The patient is GCS 15, awake, alert, oriented. Mood, judgment and insight are intact. Moving all extremities equally. Left lower extremity, the patient has some subjective numbness below the injury along the mid anterior tibial skin. He can dorsiflex his toe and his foot, but he states this is limited due to pain. LABORATORY VALUES: White blood cell count 17, hemoglobin 14.6. IMAGING STUDIES: CT angiogram of the left lower extremity shows no vascular injury. ASSESSMENT AND PLAN: The patient is a 32-year-old male status post fall from roof and cake washer blast injury to the left leg. Patient is hemodynamically stable, neurologically intact. GCS 15. Moving all extremities. The patient has seemingly no sequela from his fall other than some soft tissue contusion, which is extremely minimal. The patient does have an open wound of the left lower extremity due to the cake washer injury. We discussed this with podiatry who did recommend surgical debridement and washout urgently of the wound, as well as close observation to rule out compartment syndrome. We will start the patient on antibiotics and make the patient n.p.o. for possible surgical intervention. We will continue the patient on adequate pain control and perform neuro checks on the left lower extremity. MD SNOW Plasencia/VICKIE , 07:58 PM , 08:22 PM
[2018-01-17] MEDS: HYDROmorphone PF Inj 2 MG/ML Vial IV.PUSH PRN (20:40)
[2018-01-17] MEDS: Piperacil/Tazo 3.375 GM Premix 50 ML IV.SIG SCH (20:41)
[2018-01-17] MEDS: Sod Chloride 0.9% Inj 1,000 ML IV.CONT SCH (20:41)
[2018-01-18] MEDS: HYDROmorphone PF Inj 2 MG/ML Vial IV.PUSH PRN ×2 (00:47→09:04)
[2018-01-18] MEDS ORDERED: Chlorhexidine Gluconate 2% 1 Pack (2 Cloths) TOPICAL PRN (04:00)
[2018-01-18] MEDS: Piperacil/Tazo 3.375 GM Premix 50 ML IV.SIG SCH ×5 (04:05→20:40)
[2018-01-18] MEDS: Chlorhexidine Gluconate 2% 1 Pack (2 Cloths) TOPICAL SCH (04:07)
[2018-01-18] MEDS ORDERED: Insulin NovoLIN Regular Correctional Sugar Inj SQ SCH (05:00)
[2018-01-18] MEDS ORDERED: Sodium Chlor 0.9% Inj 500 ML IV.SIG SCH (05:00)
[2018-01-18] MEDS ORDERED: Chlorhexidine Gluconate 2% 1 Pack (2 Cloths) TOPICAL SCH (05:00)
[2018-01-18] MEDS ORDERED: Metoprolol Tartrate 25 MG Tablet PO SCH (05:00)
--- NOTE | 2018-01-18 07:52 | MB ---
cc: Feliberto Garcia DPM DATE: 01/18/2018 REASON FOR CONSULTATION: Left lower extremity laceration. 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 The patient was brought in on the trauma service. His complaint is only at this point in time, the left lower extremity. PAST MEDICAL HISTORY: The patient admits to having a history of asthma and psychomotor seizure disorder. He has not had a seizure in years, and he does not take medications. HOME MEDICATIONS: Albuterol as needed. SOCIAL HISTORY: The patient does smoke, occasional alcohol, occasional marijuana. ALLERGIES: BEE VENOM PROTEIN FROM HONEY BEE. INPATIENT MEDICATIONS: He is receiving Zosyn and Ancef; tetanus has been updated; p.r.n. pain medication. PHYSICAL EXAMINATION: VITAL SIGNS: Temperature 98, pulse rate 72, respiratory rate 16, blood pressure 116/67, and he is saturating 99% on room air. GENERAL: This is alert and oriented male seen at bedside. He has multiple tattoos. EXTREMITIES: Left lower extremity is examined. There is noted to be a full thickness laceration that appears to be a cavitating wound of the proximal medial thigh. There is no exposed tibia. There is no pulsatile bleeding. The compartments of the leg appeared to be supple, soft. No signs of compartment syndrome. The patient is capable of dorsiflexion, plantarflexion, inversion, and eversion. Fine motor skills of the digits appear to be intact. The patient does have loss of sensation of the distal medial calf. It appears to resume just at the level of the ankle distal. The laceration appears to go down to the muscle belly of the posterior tibialis as well as the flexor hallucis longus. There possible damage of the superficial branching of the femoral cutaneous nerve. It appears to be a slightly irregular with jagged edges, measuring approximately 10 cm, probing well beyond 1-2 cm. LABORATORY FINDINGS: White blood cells 17, hemoglobin and hematocrit 14 and 43, platelet count 218. Coagulation profile: PT 9.9, INR 1.0. Chem-7: Sodium 138, potassium 4.0, chloride 103, CO2 of 26.7, BUN 18, creatinine 0.89. IMAGING STUDIES: Tib-fib x-ray: Extensive soft tissue air present throughout the visualized leg correlating with washery boss wound. CTA with runoff: No evidence of acute arterial process. Extensive air within the deep soft tissue superficial of the left leg, extending from the upper popliteal space inferiorly mainly to the calf muscular, but also in the subcutaneous tissue. ASSESSMENT: Complex laceration, left distal medial calf secondary to a washery boss. PLAN: Today is operative debridement, exploration and repair of the complex laceration. Anticipate discharge within the next 24- 48hours pending pain control. Continue IV antibiotics for at least another 24 hours. Thank you for this consultation. Surgery planned for lunchtime today. The patient ordered n.p.o. after 9:00 a.m. He is okay to drink water for the next hour. SAVANNAH Melchor/VICKIE , 07:32 AM , 07:51 AM NIKOLAS
[2018-01-18] MEDS: Sod Chloride 0.9% Inj 1,000 ML IV.CONT SCH ×2 (08:07→17:45)
[2018-01-18] MEDS ORDERED: Lidocaine PF 1% Inj 5 ML Syringe INFILTRATN ONE (12:00)
[2018-01-18] MEDS ORDERED: Bupivacaine PF 0.5% Inj 30 ML Vial ONE (13:51)
[2018-01-18] MEDS ORDERED: Neomycin/Polymyxin G.U. Irrigant 1 ML Ampul ONE (13:55)
[2018-01-18] MEDS ORDERED: fentaNYL Citrate Inj 100 MCG/2 ML Ampul ONE (15:33)
--- NOTE | 2018-01-18 15:42 | P.BOP ---
- Preoperative Diagnosis (1) Laceration of left lower leg with complication - Postoperative Diagnosis (1) Laceration of left lower leg with complication (2) Injury of peripheral nerve of left lower extremity at lower leg level Date of procedure: 01/18/18 Procedure: Left leg incision drainage wound exploration. Left saphenous nerve repair Application of wound vac Implants: 5.0 Nylon. Anesthesia: GETA Surgeon: Feliberto Avitia DPM Estimated blood loss (mL): 10 (mL) Tourniquet time (min): 30 (250 mmhg) Pathology: other (left wound culture) Condition: stable Disposition: PACU
[2018-01-18] MEDS ORDERED: *Ondansetron Inj 4 MG/2 ML Vial PERIprocedural Use ONLY ONE (15:59)
[2018-01-18] MEDS ORDERED: *morphine SULFATE 4 MG/ML PERIprocedure ONLY ONE (16:02)
--- NOTE | 2018-01-18 16:02 | MP ---
cc: Feliberto Garcia DPM DATE OF OPERATION: 01/18/2018 PREOPERATIVE DIAGNOSIS: Complex laceration of left lower leg. POSTOPERATIVE DIAGNOSIS: Complex laceration of left lower leg with added injury to lower extremity peripheral nerve, saphenous nerve. PROCEDURE PERFORMED: Incision, drainage, debridement and exploration of left lower extremity wound with repair of lesser saphenous nerve and application of wound VAC. ESTIMATED BLOOD LOSS: Less than 10 mL. TOURNIQUET TIME: 30 minutes at a setting at 250 mmHg. SPECIMENS: Culture taken and sent for pathological analysis. COMPLICATIONS: None. DISPOSITION: Return to floor. Continue IV antibiotics for 1-2 days for return to the operating room for wound examination and possible delayed primary closure of wound. 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 He fell, accidentally introduced the continuous washer operator to his medial leg. He was evaluated by the trauma team. I was consulted. The patient was educated on risks and benefits of the surgery including, but not limited to, permanent numbness, infection, need for more surgery at a later date, no guarantees given or implied regarding the outcome. PROCEDURE IN DETAIL: Under mild sedation, the patient was brought into the operating room, placed on the operating table in supine position. Following the induction of general anesthesia, the left lower extremity was then scrubbed, prepped and draped in the usual aseptic fashion. The foot was elevated and exsanguinated and the previously placed mid thigh tourniquet was inflated to 250 mmHg. The distal medial calf was identified. There was noted to be a full thickness laceration. Upon further examination, there was noted to be erosion of the periosteum of the medial aspect of the tibia; however, there were no obvious signs of a tibial fracture or compromise to the cortex. Further exploration showed a deep tunneling wound into the deep compartment of the posterior leg. There was no obvious neurovascular injury deep into the leg. There was no obvious foreign body. At the superficial adipose level, there was noted to be disruption of a branch of the saphenous nerve. This was a thickness nerve laceration. The wound was then flushed with 3 liters of normal saline with irrigant. A deep culture was taken before the irrigation of the medial tibia. Next, utilizing micro instrumentation, a simple interrupted repair of the perineurium reapproximating the nerve took place. Approximately 6 sutures were used. It was noted to be a clean repair without need for any nerve graft material. Adaptic was then placed over the wound, tibia and adipose as well as deep fat. Wound VAC was then placed over the Adaptic under adequate seal and suction. A pneumatic tourniquet was dropped. There was a prompt hyperemic response to all digits. Minimal bleeding at surgery site, none excessive. The patient was transferred from OR to PACU with vital signs are stable. We will continue IV antibiotics for 1-2 days longer with anticipate delayed primary closure of wound in 1-2 days. SAVANNAH Melchor/VICKIE , 03:41 PM , 04:00 PM
--- NOTE | 2018-01-18 17:41 | P.PN ---
Subjective Interval history: TRAUMA PTD: 1 1200: To OR 1400: IN OR 1600: IN OR Physical Exam Vital signs: Vital Signs 01/17/18 20:00 01/18/18 00:00 01/18/18 04:00 Temperature 98.0 F 98.6 F 98.3 F Pulse Rate 92 H 80 72 Respiratory Rate 16 17 16 Blood Pressure 137/71 131/75 114/67 Pulse Oximetry 97 100 99 01/18/18 08:00 01/18/18 12:00 01/18/18 15:27 Temperature 98.1 F 97.6 F 97.4 F L Pulse Rate 72 79 94 H Respiratory Rate 20 20 20 Blood Pressure 120/70 127/78 133/83 Pulse Oximetry 100 95 01/18/18 15:30 01/18/18 15:45 01/18/18 16:00 Temperature Pulse Rate 63 55 L 70 Respiratory Rate 13 16 20 Blood Pressure 142/82 H 130/73 129/60 Pulse Oximetry 100 100 100 01/18/18 16:10 01/18/18 16:14 01/18/18 17:09 Temperature 97.6 F 97.5 F L Pulse Rate 68 68 Respiratory Rate 21 20 Blood Pressure 140/63 128/81 Pulse Oximetry 96 100 100 Intake & Output 01/17/18 01/18/18 01/18/18 18:59 06:59 18:59 Intake Total 100 / 100 1050 / 1050 Output Total 550 / 550 235 / 235 Balance -450 / -450 815 / 815 Weight 72.6 kg Intake: IV 100 / 100 1050 / 1050 LR 1000 mL Inj 1,000 ML @ 30 1000 / 1000 mls/hr IV.SIG .Q24H DAGO Rx#: [id number] Zosyn 3.375 GM Premix 50 ML @ 100 / 100 50 / 50 100 mls/hr IV.SIG Q6H DAGO Rx#: [id number] Output: Urine 550 / 550 225 / 225 Estimated Blood Loss 10 10 Other: Date of Last Bowel Movement 01/17/18 Results - Labs CBC & Chem 7: 01/17/18 15:40 01/17/18 15:40 Laboratory Results - last 24 hr 01/17/18 23:50 Nasal Screen MRSA (PCR) Not detected - Imaging Impressions Aorta w/Runoff CTA 01/17/18 15:42 CONCLUSION: No evidence of acute arterial process. Assessment and Plan - Plan [place]: This is a 32 year old male who sustained a fall from a roof and accidentally discharged back gray cloth washer he was using an sustained a last to his left lower extremity INJURIES: LEFT lower extremity wound. LEFT soft tissue air about calf and ankle PMHx: Epilepsy. Asthma. Smoker. Procedures: 01/18: LEFT leg I&D wound exploration. LEFT saphenous vein repair Wound vac pplication. Closure in 1-2 days Consults: Podiatry. Case management. Diet: Regular diet. Tolerating po diet. Encourage good po intake with each meal. Pulmonary: Encourage good pulmonary toileting. IS at bedside and pt encouraged to use. Rationale for use explained to patient, and verbalized understanding. PAIN Management: [place] 5-10 mg q 4h. Morphine 2 mg q 3h for breakthrough pain. Activity: BR. PT and OT ordered. (NWB LLE) GI prophylaxis: Pepcid 20 mg BID po Bowel regimen: Angeline-colace. MOM. LBM: 0 DVT prophylaxis: Mechanical VTE with SCDs. Chemical management TBD. DC Planning: Case management consulted for assistance with final discharge disposition. Emotional support provided to patient and family at bedside and plan of care discussed. Discussed with RN at bedside. Discussed pt condition and plan of care with collaborating trauma surgeon. Patient is hemodynamically stable and being managed on the med/surg floor. The trauma team will round each day, and evaluate plan of care on a daily basis.
[2018-01-18] MEDS: Famotidine 20 MG Tablet PO SCH (20:20)
[2018-01-18] MEDS: Senna/Docusate Sodium 8.6/50 MG Tablet PO SCH (20:20)
[2018-01-18] MEDS: Morphine Sulfate Inj 2 MG/ML Vial IV.PUSH PRN (20:46)
[2018-01-19] MEDS: Piperacil/Tazo 3.375 GM Premix 50 ML IV.SIG SCH ×4 (03:26→20:46)
[2018-01-19] MEDS: Chlorhexidine Gluconate 2% 1 Pack (2 Cloths) TOPICAL SCH (03:27)
[2018-01-19] MEDS: Morphine Sulfate Inj 2 MG/ML Vial IV.PUSH PRN ×2 (04:01→20:44)
[2018-01-19 04:49] LABS: Baso % (Auto) 0.2 % (0.0-2.0); Eos % (Auto) 0.1 % (0.0-4.0); Hematocrit 39.5 % (39.0-51.0); Hemoglobin 13.4 gm/dL (13.0-17.0); Lymph # (Auto) 1.5 th/mm3 (1.0-4.8); Lymph % (Auto) 11.3 % (9.0-44.0); Mean Corpuscular HGB Conc 33.9 % (32.0-36.0); Mean Corpuscular Hemoglobin 30.6 pg (27.0-34.0); Mean Corpuscular Volume 90.1 fL (80.0-100.0); Mean Platelet Volume 11.1 fL (7.0-11.0); Mono # (Auto) 0.8 th/mm3 (0.0-0.9); Mono % (Auto) 5.9 % (0.0-8.0); Neut # (Auto) 10.7 th/mm3 (1.8-7.7); Neut % (Auto) 82.5 % (16.0-70.0); Platelet Count 225 th/mm3 (150-450); Red Blood Count 4.39 mil/mm3 (4.50-5.90); Red Cell Distribution Width 13.5 % (11.6-17.2); White Blood Count 12.9 th/mm3 (4.0-11.0)
[2018-01-19 05:09] LABS: Calcium 8.9 mg/dL (8.5-10.1); Carbon Dioxide 23.4 meq/L (21.0-32.0)
--- NOTE | 2018-01-19 07:30 | P.PNPOD ---
Subjective Interval history: Moderate pain last night, entered room sleeping, doing ok. Physical Exam Vital signs: Vital Signs 01/18/18 08:00 01/18/18 12:00 01/18/18 15:27 Temperature 98.1 F 97.6 F 97.4 F L Pulse Rate 72 79 94 H Respiratory Rate 20 20 20 Blood Pressure 120/70 127/78 133/83 Pulse Oximetry 100 95 01/18/18 15:30 01/18/18 15:45 01/18/18 16:00 Temperature Pulse Rate 63 55 L 70 Respiratory Rate 13 16 20 Blood Pressure 142/82 H 130/73 129/60 Pulse Oximetry 100 100 100 01/18/18 16:10 01/18/18 16:14 01/18/18 17:09 Temperature 97.6 F 97.5 F L Pulse Rate 68 68 Respiratory Rate 21 20 Blood Pressure 140/63 128/81 Pulse Oximetry 96 100 100 01/18/18 20:00 01/18/18 20:48 01/19/18 00:10 Temperature 98.2 F 97.6 F Pulse Rate 90 88 Respiratory Rate 16 18 18 Blood Pressure 129/78 129/70 Pulse Oximetry 97 99 01/19/18 04:00 Temperature 98.2 F Pulse Rate 93 H Respiratory Rate 16 Blood Pressure 109/54 L Pulse Oximetry 100 Intake & Output 01/18/18 01/19/18 01/19/18 18:59 06:59 18:59 Intake Total 1050 / 1050 100 / 100 Output Total 235 / 235 700 / 700 Balance 815 / 815 -600 / -600 Intake: IV 1050 / 1050 100 / 100 LR 1000 mL Inj 1,000 ML @ 30 1000 / 1000 mls/hr IV.SIG .Q24H DAGO Rx#: [id number] Zosyn 3.375 GM Premix 50 ML @ 50 / 50 100 / 100 100 mls/hr IV.SIG Q6H DAGO Rx#: [id number] Output: Urine 225 / 225 700 / 700 Estimated Blood Loss Narrative: Left LE: no strike through on outer bandage. Medial calf- Laceration with no active bleeding, calf is tender however supple, distal pulses palpable foot is warm, medial calf numbness noted, able to move toes foot and ankle with some pain. Medications and Allergies Active Medications: Active Medications Acetaminophen (Tylenol) 650 mg PO Q6H PRN PRN Reason: TEMPERATURE > 102 F Hydrocodone Bitart/Acetaminophen ([place] 5/325) 2 tab PO Q4H PRN PRN Reason: PAIN SCALE 4 TO 6 MODERATE Last Admin: 01/18/18 17:41 Dose: 2 tab Hydrocodone Bitart/Acetaminophen ([place] 5/325) 1 tab PO Q4H PRN PRN Reason: Pain 1-5 Al Hydroxide/Mg Hydroxide (Milk Of Magncarolin Liq) 30 ml PO BID [facility] Last Admin: 01/18/18 20:20 Dose: 30 ml Albuterol (Ventolin Hfa Inh) 2 puff INH Q4H PRN PRN Reason: WHEEZING Chlorhexidine Gluconate (Chlorhexidine 2% Cloth) 3 pack TOPICAL DAILY@0400 [facility] Stop: 01/23/18 03:59 Last Admin: 01/19/18 03:27 Dose: Not Given Chlorhexidine Gluconate (Chlorhexidine 2% Cloth) 3 pack TOPICAL DAILY@0400 PRN PRN Reason: Extra cloth needed Stop: 01/23/18 03:59 Chlorhexidine Gluconate (Chlorhexidine 2% Cloth) 3 pack TOPICAL MAIL PROCESSOR [facility] Stop: 01/21/18 04:47 Famotidine (Pepcid) 20 mg PO BID [facility] Last Admin: 01/18/18 20:20 Dose: 20 mg Sodium Chloride (Ns Inj) 1,000 mls @ 100 mls/hr IV.CONT .Q10H [facility] Last Admin: 01/18/18 17:45 Dose: 100 mls/hr Piperacillin/Tazobactam/Dextrose (Zosyn 3.375 Gm Premix) 50 mls @ 100 mls/hr IV.SIG Q6H [facility] Last Infusion: 01/19/18 03:56 Dose: Infused Lactated Ringer's (Lr 1000 Ml Inj) 1,000 mls @ 30 mls/hr IV.SIG .Q24H [facility] Stop: 01/21/18 04:47 Last Infusion: 01/18/18 16:08 Dose: Infused Sodium Chloride (Ns Inj) 500 mls @ 30 mls/hr IV.SIG .Q10H [facility] Stop: 01/21/18 04:47 Insulin Human Regular (Novolin R Correctional Sugar Inj) 0 units SQ MAIL PROCESSOR [facility] ; Protocol Stop: 01/21/18 04:47 Metoprolol Tartrate (Lopressor) 25 mg PO MAIL PROCESSOR [facility] Stop: 01/21/18 04:47 Miscellaneous Information ([facility] [place] [facility]) 1 each OTHER UNSCH PRN PRN Reason: SEE LABEL COMMENTS Stop: 01/19/18 15:29 Morphine Sulfate (Morphine Inj) 3 mg IV.PUSH Q3H PRN PRN Reason: BREAKTHROUGH PAIN Last Admin: 01/19/18 04:01 Dose: 3 mg Ondansetron HCl (Zofran Inj) 4 mg IV.PUSH Q6H PRN PRN Reason: NAUSEA Ondansetron HCl (Zofran Odt) 4 mg PO Q6H PRN PRN Reason: NAUSEA Povidone Iodine (Betadine 5% Antisepsis Kit) 1 applicatio EACH NARE MAIL PROCESSOR [facility] Stop: 01/21/18 04:47 Senna/Docusate Sodium (Angeline-Colace) 1 tab PO BID [facility] Last Admin: 01/18/18 20:20 Dose: 1 tab Sodium Chloride (Ns Flush) 2 ml IV.FLUSH UNSCH PRN PRN Reason: FLUSH AFTER USING IV ACCESS Last Admin: 01/18/18 20:47 Dose: 2 ml Allergies Allergy/AdvReac Type Severity Reaction Status Date / Time bee venom protein (honey bee) Allergy Severe Anaphylaxis Verified 01/17/18 14:25 Home Medications Medication Instructions Recorded Confirmed Type No Known Home Medications 01/17/18 01/17/18 History Results - Labs CBC & Chem 7: 01/19/18 03:30 01/19/18 03:30 Laboratory Results - last 24 hr 01/19/18 01/19/18 03:30 03:30 WBC 12.9 H RBC 4.39 L Hgb 13.4 Hct 39.5 MCV 90.1 MCH 30.6 MCHC 33.9 RDW 13.5 Plt Count 225 MPV 11.1 H Neut % (Auto) 82.5 H Lymph % (Auto) 11.3 [place] % (Auto) 5.9 Eos % (Auto) 0.1 Baso % (Auto) 0.2 Neut # (Auto) 10.7 H Lymph # (Auto) 1.5 [place] # (Auto) 0.8 Eos # (Auto) 0.0 Baso # (Auto) 0.0 WBC Differential . Differential Comment Auto diff final Sodium 139 Potassium 4.0 Chloride 105 Carbon Dioxide 23.4 Anion Gap 11 BUN 11 Creatinine 0.99 Estimated GFR 88 L Random Glucose 98 Calcium 8.9 Assessment and Plan - Assessment (1) Laceration of left lower leg with complication Code(s): S81.812A - Laceration without foreign body, left lower leg, initial encounter Status: Acute Plan: Repeat debridement, washout tomorrow with possible delayed primary closure of wound. Added Percocet for pain. Npo after liquid breakfast 01/20. Signing out to Dr Pittman. Continue IV ABX for 2 days longer. Surgical Cx pending. (2) Injury of peripheral nerve of left lower extremity at lower leg level Code(s): S84.802A - Injury of other nerves at lower leg level, left leg, initial encounter Status: Acute
[2018-01-19] MEDS: Famotidine 20 MG Tablet PO SCH ×2 (09:21→20:46)
[2018-01-19] MEDS: Senna/Docusate Sodium 8.6/50 MG Tablet PO SCH ×2 (09:39→20:45)
[2018-01-19] MEDS: Sod Chloride 0.9% Inj 1,000 ML IV.CONT SCH ×2 (16:57→17:03)
--- NOTE | 2018-01-19 17:34 | P.PN ---
Subjective Interval history: Trauma Post trauma day: 2 Patient lying in bed. No distress noted. Patient complains of pain and muscle spasms to left lower extremity. Plan for return to the OR tomorrow with podiatry. Physical Exam Vital signs: Vital Signs 01/18/18 20:00 01/18/18 20:48 01/19/18 00:10 Temperature 98.2 F 97.6 F Pulse Rate 90 88 Respiratory Rate 16 18 18 Blood Pressure 129/78 129/70 Pulse Oximetry 97 99 01/19/18 04:00 01/19/18 08:00 01/19/18 12:00 Temperature 98.2 F 97.7 F 98.0 F Pulse Rate 93 H 85 87 Respiratory Rate 16 16 16 Blood Pressure 109/54 L 116/56 L 132/70 Pulse Oximetry 100 100 100 01/19/18 16:00 Temperature 98.1 F Pulse Rate 90 Respiratory Rate 14 Blood Pressure 117/70 Pulse Oximetry 100 Intake & Output 01/18/18 01/19/18 01/19/18 18:59 06:59 18:59 Intake Total 1050 / 1050 1100 / 1100 50 / 50 Output Total 235 / 235 700 / 700 Balance 815 / 815 400 / 400 50 / 50 Intake: IV 1050 / 1050 1100 / 1100 50 / 50 NS Inj 1,000 ML @ 100 mls/hr IV 1000 / 1000 .CONT .Q10H DAGO Rx#:[id number] LR 1000 mL Inj 1,000 ML @ 30 1000 / 1000 mls/hr IV.SIG .Q24H DAGO Rx#: [id number] Zosyn 3.375 GM Premix 50 ML @ 50 / 50 100 / 100 50 / 50 100 mls/hr IV.SIG Q6H DAGO Rx#: [id number] Output: Urine 225 / 225 700 / 700 Estimated Blood Loss 10 / 10 Other: Mode Setting Left Ch Continuous Narrative: GENERAL: This is a 32-year-old male lying in bed. No distress noted. SKIN: Warm and dry. HEAD: Atraumatic. Normocephalic. EYES: PERRLA ENT: No nasal bleeding or discharge. Mucous membranes pink and moist. NECK: Trachea midline. No JVD. CARDIOVASCULAR: Regular rate and rhythm. RESPIRATORY: No accessory muscle use. Lungs are clear to auscultation. Breath sounds equal bilaterally. No distress or dyspnea. GASTROINTESTINAL: BS + x 4 quads. Abdomen soft, non-tender, nondistended. MUSCULOSKELETAL: Extremities without cyanosis, or edema. Left lower extremity dressing in place and wrapped in [place] bandage. Remains swollen and painful. Patient has limited feeling to left inner ankle area. + peripheral pulses x 4 extremities. Warm with good capillary refill and sensation. MAEW. NEUROLOGICAL: Awake and alert. Normal speech and pattern. Results - Labs CBC & Chem 7: 01/21/18 05:13 01/21/18 05:13 Laboratory Results - last 24 hr 01/19/18 01/19/18 03:30 03:30 WBC 12.9 H RBC 4.39 L Hgb 13.4 Hct 39.5 MCV 90.1 MCH 30.6 MCHC 33.9 RDW 13.5 Plt Count 225 MPV 11.1 H Neut % (Auto) 82.5 H Lymph % (Auto) 11.3 [place] % (Auto) 5.9 Eos % (Auto) 0.1 Baso % (Auto) 0.2 Neut # (Auto) 10.7 H Lymph # (Auto) 1.5 [place] # (Auto) 0.8 Eos # (Auto) 0.0 Baso # (Auto) 0.0 WBC Differential . Differential Comment Auto diff final Sodium 139 Potassium 4.0 Chloride 105 Carbon Dioxide 23.4 Anion Gap 11 BUN 11 Creatinine 0.99 Estimated GFR 88 L Random Glucose 98 Calcium 8.9 Microbiology 01/18/18 15:18 Wound - Leg Gram Stain - Final 01/18/18 15:18 Wound - Leg Wound Culture - Preliminary No growth in 24 hours 01/18/18 15:18 Wound - Leg Fungal Smear - Final No fungal elements seen Assessment and Plan - Plan [place]: This is a 32 year old male who sustained a fall from a roof and accidentally discharged press washer he was using an sustained a last to his left lower extremity INJURIES: LEFT lower extremity wound. LEFT soft tissue air about calf and ankle PMHx: Epilepsy. Asthma. Smoker. Procedures: 01/18: LEFT leg I&D wound exploration. LEFT saphenous vein repair Wound vac pplication. 01/20: Plan for return to OR with podiatry Consults: Podiatry. Case management. Diet: Regular diet. Tolerating po diet. Encourage good po intake with each meal. Pulmonary: Encourage good pulmonary toileting. IS at bedside and pt encouraged to use. Rationale for use explained to patient, and verbalized understanding. PAIN Management: Percocet 5-7.5 mg q 4h. Morphine 2 mg q 3h for breakthrough pain. Added Flexeril for muscle spasms. Activity: OOB. PT and OT ordered. ([place] LLE) GI prophylaxis: Pepcid 20 mg BID po Bowel regimen: Angeline-colace. MOM. LBM: 0 DVT prophylaxis: Mechanical VTE with SCDs. Chemical management TBD. DC Planning: Case management consulted for assistance with final discharge disposition. Emotional support provided to patient and family at bedside and plan of care discussed. Discussed with RN at bedside. Discussed pt condition and plan of care with collaborating trauma surgeon. Patient is hemodynamically stable and being managed on the med/surg floor. The trauma team will round each day, and evaluate plan of care on a daily basis. LEFT lower extremity soft tissue blast injury with SQ air Podiatry consulted and assisting in management and care 01/18: LEFT leg I&D wound exploration. LEFT saphenous vein repair with wound vac application. 01/20: Return to OR with podiatry Pain control Bowel regimen IV Zosyn FRANKLYN GOLD Encourage OOB- PT/OT ordered
[2018-01-20] MEDS: Sod Chloride 0.9% Inj 1,000 ML IV.CONT SCH ×3 (01:40→18:01)
[2018-01-20] MEDS: Piperacil/Tazo 3.375 GM Premix 50 ML IV.SIG SCH ×4 (04:23→22:58)
[2018-01-20 07:42] LABS: Baso % (Auto) 0.4 % (0.0-2.0); Eos # (Auto) 0.5 th/mm3 (0.0-0.4); Hematocrit 36.8 % (39.0-51.0); Hemoglobin 12.4 gm/dL (13.0-17.0); Lymph # (Auto) 3.2 th/mm3 (1.0-4.8); Lymph % (Auto) 32.2 % (9.0-44.0); Mean Corpuscular HGB Conc 33.9 % (32.0-36.0); Mean Corpuscular Hemoglobin 31.2 pg (27.0-34.0); Mean Corpuscular Volume 92.2 fL (80.0-100.0); Mean Platelet Volume 10.9 fL (7.0-11.0); Mono # (Auto) 0.7 th/mm3 (0.0-0.9); Mono % (Auto) 7.5 % (0.0-8.0); Neut # (Auto) 5.5 th/mm3 (1.8-7.7); Neut % (Auto) 54.9 % (16.0-70.0); Platelet Count 186 th/mm3 (150-450); Red Blood Count 3.99 mil/mm3 (4.50-5.90); Red Cell Distribution Width 13.5 % (11.6-17.2)
[2018-01-20 07:49] LABS: Anion Gap 6 meq/L (5-15); Blood Urea Nitrogen 13 mg/dL (7-18); Chloride 112 meq/L (98-107); Glomerular Filtration Rate Greater Than 89 mL/min (>89); Glucose,Random 80 mg/dL (74-106); Potassium 3.8 meq/L (3.5-5.1); Sodium 145 meq/L (136-145)
[2018-01-20] MEDS: Chlorhexidine Gluconate 2% 1 Pack (2 Cloths) TOPICAL SCH (07:57)
[2018-01-20] MEDS: Senna/Docusate Sodium 8.6/50 MG Tablet PO SCH ×2 (09:00→22:59)
[2018-01-20] MEDS: Famotidine 20 MG Tablet PO SCH ×2 (09:58→22:57)
--- NOTE | 2018-01-20 13:08 | P.PNPOD ---
Subjective Interval history: Patient seen bedside in preop. Denies any nausea vomiting fevers or chills. Agrees with plan procedure. Physical Exam Vital signs: Vital Signs 01/19/18 16:00 01/19/18 20:00 01/19/18 22:51 Temperature 98.1 F 98.2 F Pulse Rate 90 77 Respiratory Rate 14 16 18 Blood Pressure 117/70 135/69 Pulse Oximetry 100 99 01/19/18 23:26 01/20/18 04:00 01/20/18 08:00 Temperature 97.8 F 97.8 F Pulse Rate 84 76 68 Respiratory Rate 18 18 16 Blood Pressure 129/71 132/85 117/68 Pulse Oximetry 100 98 99 Intake & Output 01/19/18 01/20/18 01/20/18 18:59 06:59 18:59 Intake Total 50 / 50 1050 / 1050 1100 / 1100 Output Total 700 / 700 Balance 50 / 50 1050 / 1050 400 / 400 Intake: IV 50 / 50 1050 / 1050 1100 / 1100 NS Inj 1,000 ML @ 100 mls/hr IV 850 / 850 1000 / 1000 .CONT .Q10H [facility] Rx#:[id number] Zosyn 3.375 GM Premix 50 ML @ 50 / 50 100 / 100 100 / 100 100 mls/hr IV.SIG Q6H [facility] Rx#: [id number] Output: Urine 700 / 700 Other: Date of Last Bowel Movement 01/17/18 Narrative: Dressing the left lower extremity clean dry and intact no strikethrough present. Active passive dorsiflexion of digits 1 through 5 left foot. Capillary refill time to digits 1 through 5 left foot. DP present left foot. Medications and Allergies Active Medications: Active Medications Acetaminophen (Tylenol) 650 mg PO Q6H PRN PRN Reason: TEMPERATURE > 102 F Hydrocodone Bitart/Acetaminophen ([place] 5/325) 2 tab PO Q4H PRN PRN Reason: PAIN SCALE 4 TO 6 MODERATE Last Admin: 01/18/18 17:41 Dose: 2 tab Hydrocodone Bitart/Acetaminophen ([place] 5/325) 1 tab PO Q4H PRN PRN Reason: Pain 1-5 Al Hydroxide/Mg Hydroxide (Milk Of Magnesia Liq) 30 ml PO BID [facility] Last Admin: 01/19/18 20:45 Dose: 30 ml Albuterol (Ventolin Hfa Inh) 2 puff INH Q4H PRN PRN Reason: WHEEZING Chlorhexidine Gluconate (Chlorhexidine 2% Cloth) 3 pack TOPICAL DAILY@0400 [facility] Stop: 01/23/18 03:59 Last Admin: 01/20/18 07:57 Dose: Not Given Chlorhexidine Gluconate (Chlorhexidine 2% Cloth) 3 pack TOPICAL DAILY@0400 PRN PRN Reason: Extra cloth needed Stop: 01/23/18 03:59 Chlorhexidine Gluconate (Chlorhexidine 2% Cloth) 3 pack TOPICAL [facility] Stop: 01/21/18 04:47 Cyclobenzaprine HCl (Flexeril) 10 mg PO Q8HR [facility] Last Admin: 01/20/18 05:14 Dose: 10 mg Famotidine (Pepcid) 20 mg PO BID [facility] Last Admin: 01/20/18 09:58 Dose: 20 mg Sodium Chloride (Ns Inj) 1,000 mls @ 100 mls/hr IV.CONT .Q10H [facility] Last Admin: 01/20/18 09:58 Dose: 100 mls/hr Piperacillin/Tazobactam/Dextrose (Zosyn 3.375 Gm Premix) 50 mls @ 100 mls/hr IV.SIG Q6H [facility] Last Infusion: 01/20/18 10:45 Dose: Infused Lactated Ringer's (Lr 1000 Ml Inj) 1,000 mls @ 30 mls/hr IV.SIG .Q24H [facility] Stop: 01/21/18 04:47 Last Admin: 01/20/18 07:57 Dose: Not Given Sodium Chloride (Ns Inj) 500 mls @ 30 mls/hr IV.SIG .Q10H [facility] Stop: 01/21/18 04:47 Insulin Human Regular (Novolin R Correctional Sugar Inj) 0 units SQ [facility] ; Protocol Stop: 01/21/18 04:47 Metoprolol Tartrate (Lopressor) 25 mg PO [facility] Stop: 01/21/18 04:47 Morphine Sulfate (Morphine Inj) 3 mg IV.PUSH Q3H PRN PRN Reason: BREAKTHROUGH PAIN Last Admin: 01/19/18 20:44 Dose: 3 mg Ondansetron HCl (Zofran Inj) 4 mg IV.PUSH Q6H PRN PRN Reason: NAUSEA Ondansetron HCl (Zofran Odt) 4 mg PO Q6H PRN PRN Reason: NAUSEA Oxycodone/Acetaminophen (Percocet 7.5/325 Mg) 1 tab PO Q4H PRN PRN Reason: PAIN SCALE 7 TO 10 SEVERE Last Admin: 01/20/18 10:45 Dose: 1 tab Oxycodone/Acetaminophen (Percocet 5/325 Mg) 1 tab PO Q4H PRN PRN Reason: Acute Pain Povidone Iodine (Betadine 5% Antisepsis Kit) 1 applicatio EACH NARE [facility] Stop: 01/21/18 04:47 Senna/Docusate Sodium (Angeline-Colace) 1 tab PO BID [facility] Last Admin: 01/19/18 20:45 Dose: 1 tab Sodium Chloride (Ns Flush) 2 ml IV.FLUSH UNSCH PRN PRN Reason: FLUSH AFTER USING IV ACCESS Last Admin: 01/18/18 20:47 Dose: 2 ml Allergies Allergy/AdvReac Type Severity Reaction Status Date / Time bee venom protein (honey bee) Allergy Severe Anaphylaxis Verified 01/17/18 14:25 Home Medications Medication Instructions Recorded Confirmed Type No Known Home Medications 01/17/18 01/17/18 History Results - Labs CBC & Chem 7: 01/20/18 05:51 01/20/18 05:51 Laboratory Results - last 24 hr 01/20/18 01/20/18 05:51 05:51 WBC 10.0 RBC 3.99 L Hgb 12.4 L Hct 36.8 L MCV 92.2 MCH 31.2 MCHC 33.9 RDW 13.5 Plt Count 186 MPV 10.9 Neut % (Auto) 54.9 Lymph % (Auto) 32.2 [place] % (Auto) 7.5 Eos % (Auto) 5.0 H Baso % (Auto) 0.4 Neut # (Auto) 5.5 Lymph # (Auto) 3.2 [place] # (Auto) 0.7 Eos # (Auto) 0.5 H Baso # (Auto) 0.0 WBC Differential . Differential Comment Auto diff final Sodium 145 Potassium 3.8 Chloride 112 H Carbon Dioxide 27.0 Anion Gap 6 BUN 13 Creatinine 0.92 Estimated GFR Greater than 89 Random Glucose 80 Calcium 8.0 L D Microbiology 01/18/18 15:18 Wound - Leg Acid Fast Bacilli Smear - Final No acid fast bacilli seen 01/18/18 15:18 Wound - Leg Gram Stain - Final 01/18/18 15:18 Wound - Leg Wound Culture - Preliminary No growth in 48 hours Assessment and Plan - Assessment (1) Laceration of left lower leg with complication Code(s): S81.812A - Laceration without foreign body, left lower leg, initial encounter Status: Acute (2) Injury of peripheral nerve of left lower extremity at lower leg level Code(s): S84.802A - Injury of other nerves at lower leg level, left leg, initial encounter Status: Acute - Plan 32-year-old male status post Left leg incision drainage wound exploration; Left saphenous nerve repair; Application of wound vac Patient examined evaluated with all questions answered Patient 2 OR today for left leg incision and drainage with delayed primary closure Patient understands all benefits alternatives risks complications associated with procedure he like to proceed with surgical intervention Anticipate DC 2-3 days postop
[2018-01-20] MEDS ORDERED: ceFAZolin 2 GM Premix Inj 2 GM/50 ML PIGGYBACK IV.SIG ONE (13:21)
[2018-01-20] MEDS ORDERED: Bupivacaine/Epinephrine PF Inj 0.5% 10 ML Vial ONE (13:26)
[2018-01-20] MEDS ORDERED: Bupivacaine PF 0.5% Inj 30 ML Vial ONE (13:31)
--- NOTE | 2018-01-20 14:15 | P.PCN ---
Date of procedure: 01/20/18 Pre-op diagnosis: Left leg laceration/hematoma Post-op diagnosis: same Procedure: Left leg debridement and irrigation with repair of complex laceration Anesthesia: CONNIE Surgeon: Krys Pittman Pathology: none sent Condition: stable Disposition: PACU (NVS intact to LLE when transferred from OR to PACU)
[2018-01-20] MEDS ORDERED: Post-op Orders (for Pharmacy) OTHER STA (14:16)
[2018-01-20] MEDS ORDERED: fentaNYL Citrate Inj 100 MCG/2 ML Ampul ONE (14:19)
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
[2018-01-20] MEDS ORDERED: *morphine SULFATE 4 MG/ML PERIprocedure ONLY ONE (16:17)
[2018-01-20] MEDS ORDERED: Lidocaine PF 1% Inj 5 ML Syringe INFILTRATN ONE (19:25)
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
[2018-01-20] MEDS: Enoxaparin Inj 40 MG/0.4 ML Syringe SQ SCH (23:04)
[2018-01-21] MEDS: Morphine Sulfate Inj 2 MG/ML Vial IV.PUSH PRN ×4 (00:56→18:39)
[2018-01-21] MEDS: Piperacil/Tazo 3.375 GM Premix 50 ML IV.SIG SCH ×2 (03:42→11:11)
[2018-01-21] MEDS: Sod Chloride 0.9% Inj 1,000 ML IV.CONT SCH (03:43)
[2018-01-21] MEDS: Chlorhexidine Gluconate 2% 1 Pack (2 Cloths) TOPICAL SCH (05:31)
[2018-01-21] MEDS ORDERED: Ketorolac Inj 30 MG/ML (IVP) Vial IV.PUSH SCH (06:30)
[2018-01-21 07:13] LABS: Baso # (Auto) 0.1 th/mm3 (0.0-0.2); Baso % (Auto) 0.5 % (0.0-2.0); Eos # (Auto) 0.2 th/mm3 (0.0-0.4); Eos % (Auto) 1.2 % (0.0-4.0); Hematocrit 37.4 % (39.0-51.0); Hemoglobin 12.7 gm/dL (13.0-17.0); Lymph # (Auto) 2.8 th/mm3 (1.0-4.8); Lymph % (Auto) 17.9 % (9.0-44.0); Mean Corpuscular HGB Conc 33.8 % (32.0-36.0); Mean Corpuscular Volume 91.7 fL (80.0-100.0); Mean Platelet Volume 10.9 fL (7.0-11.0); Mono # (Auto) 1.1 th/mm3 (0.0-0.9); Mono % (Auto) 7.3 % (0.0-8.0); Neut # (Auto) 11.4 th/mm3 (1.8-7.7); Neut % (Auto) 73.1 % (16.0-70.0); Platelet Count 202 th/mm3 (150-450); Red Blood Count 4.08 mil/mm3 (4.50-5.90); Red Cell Distribution Width 13.7 % (11.6-17.2); White Blood Count 15.6 th/mm3 (4.0-11.0)
[2018-01-21 07:32] LABS: Anion Gap 7 meq/L (5-15); Blood Urea Nitrogen 11 mg/dL (7-18); Calcium 8.2 mg/dL (8.5-10.1); Chloride 108 meq/L (98-107); Glomerular Filtration Rate Greater Than 89 mL/min (>89); Glucose,Random 109 mg/dL (74-106); Potassium 3.5 meq/L (3.5-5.1); Sodium 141 meq/L (136-145)
[2018-01-21] MEDS: Enoxaparin Inj 40 MG/0.4 ML Syringe SQ SCH (11:08)
[2018-01-21] MEDS: oxyCODONE/Acetaminophen 10/325 Tablet PO PRN ×2 (11:08→18:40)
[2018-01-21] MEDS: Famotidine 20 MG Tablet PO SCH (11:09)
[2018-01-21] MEDS: Senna/Docusate Sodium 8.6/50 MG Tablet PO SCH (11:11)
--- NOTE | 2018-01-21 17:08 | P.PNPOD ---
Subjective Interval history: Patient seen bedside. Is resting comfortably. Is concerned about ankle swelling. He states his pain is well controlled and he would like to go home. Physical Exam Vital signs: Vital Signs 01/20/18 17:40 01/20/18 19:06 01/20/18 20:00 Temperature 98.0 F 97.8 F Pulse Rate 58 L 90 Respiratory Rate 14 5 L 18 Blood Pressure 116/63 126/68 Pulse Oximetry 99 99 01/21/18 00:00 01/21/18 04:00 01/21/18 08:00 Temperature 97.9 F 98.0 F 98.2 F Pulse Rate 95 H 93 H 80 Respiratory Rate 20 20 19 Blood Pressure 137/77 125/75 113/63 Pulse Oximetry 100 100 98 01/21/18 12:00 01/21/18 16:00 Temperature 97.7 F 97.8 F Pulse Rate 93 H 88 Respiratory Rate 19 19 Blood Pressure 143/94 H 136/75 Pulse Oximetry 100 99 Intake & Output 01/20/18 01/21/18 01/21/18 18:59 06:59 18:59 Intake Total 2750.0 / 2750.0 1150 / 1150 Output Total 1405 / 1405 1750 / 1750 Balance 1345.0 / 1345.0 -600 / -600 Intake: IV 2150.0 / 2150.0 1150 / 1150 NS Inj 1,000 ML @ 100 mls/hr IV 2000.0 / 2000.0 1000 / 1000 .CONT .Q10H [facility] Rx#:[id number] Zosyn 3.375 GM Premix 50 ML @ 150 / 150 100 / 100 100 mls/hr IV.SIG Q6H [facility] Rx#: [id number] Ancef 2 GM Premix Inj 2 gm In 50 / 50 50 ml @ 0 mls/hr IV.SIG .STK- [facility] Rx#:[id number] Oral 600 / 600 Output: Urine 1400 / 1400 1750 / 1750 Estimated Blood Loss 5 / 5 Other: Date of Last Bowel Movement 01/17/18 01/19/18 Narrative: Sutures intact to left leg skin well coapted no surrounding erythema or edema noted. No pain on calf compression. Nonpitting edema noted to left medial ankle. Ecchymosis noted. Palpable DP PT pulses. Capillary refill to digits 5 left foot Medications and Allergies Active Medications: Active Medications Acetaminophen (Tylenol) 650 mg PO Q6H PRN PRN Reason: TEMPERATURE > 102 F Al Hydroxide/Mg Hydroxide (Milk Of Kassy Limaq) 30 ml PO BID [facility] Last Admin: 01/21/18 11:10 Dose: Not Given Albuterol (Ventolin Hfa Inh) 2 puff INH Q4H PRN PRN Reason: WHEEZING Cyclobenzaprine HCl (Flexeril) 10 mg PO Q8HR [facility] Last Admin: 01/21/18 06:04 Dose: 10 mg Diphenhydramine HCl (Benadryl) 25 mg PO Q6H PRN PRN Reason: ITCHING Enoxaparin Sodium (Lovenox Inj) 40 mg SQ DAILY [facility] Last Admin: 01/21/18 11:08 Dose: 40 mg Famotidine (Pepcid) 20 mg PO BID [facility] Last Admin: 01/21/18 11:09 Dose: 20 mg Ketorolac Tromethamine (Toradol Inj) 15 mg IV.PUSH Q6H [facility] Stop: 01/24/18 06:29 Morphine Sulfate (Morphine Inj) 3 mg IV.PUSH Q3H PRN PRN Reason: BREAKTHROUGH PAIN Last Admin: 01/21/18 11:09 Dose: 3 mg Ondansetron HCl (Zofran Odt) 4 mg PO Q6H PRN PRN Reason: NAUSEA Oxycodone/Acetaminophen (Percocet 5/325 Mg) 1 tab PO Q4H PRN PRN Reason: PAIN SCALE 3 TO 5 Oxycodone/Acetaminophen (Percocet 10/325 Mg) 1 tab PO Q4H PRN PRN Reason: PAIN SCALE 6 TO 10 Last Admin: 01/21/18 11:08 Dose: 1 tab Senna/Docusate Sodium (Angeline-Colace) 1 tab PO BID [facility] Last Admin: 01/21/18 11:11 Dose: Not Given Sodium Chloride (Ns Flush) 2 ml IV.FLUSH UNSCH PRN PRN Reason: FLUSH AFTER USING IV ACCESS Last Admin: 01/18/18 20:47 Dose: 2 ml Allergies Allergy/AdvReac Type Severity Reaction Status Date / Time bee venom protein (honey bee) Allergy Severe Anaphylaxis Verified 01/17/18 14:25 Home Medications Medication Instructions Recorded Confirmed Type No Known Home Medications 01/17/18 01/17/18 History Results - Labs CBC & Chem 7: 07/20/18 05:13 01/21/18 05:13 Laboratory Results - last 24 hr 01/21/18 01/21/18 05:13 05:13 WBC 15.6 H D RBC 4.08 L Hgb 12.7 L Hct 37.4 L MCV 91.7 MCH 31.0 MCHC 33.8 RDW 13.7 Plt Count 202 MPV 10.9 Neut % (Auto) 73.1 H Lymph % (Auto) 17.9 [place] % (Auto) 7.3 Eos % (Auto) 1.2 Baso % (Auto) 0.5 Neut # (Auto) 11.4 H Lymph # (Auto) 2.8 [place] # (Auto) 1.1 H Eos # (Auto) 0.2 Baso # (Auto) 0.1 WBC Differential . Differential Comment Auto diff final Sodium 141 Potassium 3.5 Chloride 108 H Carbon Dioxide 26.0 Anion Gap 7 BUN 11 Creatinine 0.89 Estimated GFR Greater than 89 Random Glucose 109 H Calcium 8.2 L Microbiology 01/18/18 15:18 Wound - Leg Gram Stain - Final 01/18/18 15:18 Wound - Leg Wound Culture - Final No growth in 72 hours (aerobically and anaerobically ) Assessment and Plan - Assessment (1) Laceration of left lower leg with complication Code(s): S81.812A - Laceration without foreign body, left lower leg, initial encounter Status: Acute (2) Injury of peripheral nerve of left lower extremity at lower leg level Code(s): S84.802A - Injury of other nerves at lower leg level, left leg, initial encounter Status: Acute - Plan 32-year-old male status post Left leg incision drainage wound exploration; Left saphenous nerve repair; Application of wound vac Status post debridement irrigation with wound closure date of surgery 01/20 Patient examined evaluated with all questions answered Okay to discharge per podiatry Appropriate pain medications as well as appropriate antibiotics Patient to follow-up with Dr. Garcia within 1 week of discharge Limited weight bearing to LLE Ice and Elevate LLE
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
== END 2018-01-21 19:26 | disposition home or self-care (01) ==
LOC: PHEFT 14:05 → PHEDA 14:05 → NEPFCDU 20:21 → N07 01-20 11:35
PROVIDERS: ADMIT Surgery; ATTEND Surgery